=== PATIENT | female | born 1955 | race Caucasian/White ===

== ENCOUNTER 2016-07-08 14:03 | Emergency (ER) | payer SELFPAY ==
[2016-07-08] MEDS ORDERED: Nitroglycerin TAB 0.4 MG* 0.4 MG TAB SL ONE (14:59)
[2016-07-08] MEDS ORDERED: Aspirin Low Dose CHEW TAB* 81 MG PO ONE (14:59)
[2016-07-08 15:09] LABS: Hematocrit 40 % (35-47); Hemoglobin 12.6 g/dl (12.0-16.0); Mean Corpuscular HGB Conc 32 g/dl (31-36); Mean Corpuscular Hemoglobin 25 pg (27-31); Mean Corpuscular Volume 78 fL (80-97); Mean Platelet Volume 8 um3 (7.4-10.4); Red Blood Count 5.09 10^6/ul (4.0-5.4); Red Cell Distribution Width 15 % (10.5-15); White Blood Count 6.8 10^3/ul (3.5-10.8)
--- NOTE | 2016-07-08 15:17 | RAD ---
INDICATION: Chest pain. COMPARISON: Comparison is made with a prior study from September 23, 2014. TECHNIQUE: A portable view of the chest was obtained. FINDINGS: Cardiac and mediastinal contours appear to be within normal limits. The lungs are clear. No pleural effusion is seen. IMPRESSION: NO EVIDENCE FOR ACUTE DISEASE.
[2016-07-08 15:18] LABS: Albumin 4.4 g/dL (3.2-5.2); BUN/Creatinine Ratio 19.2 (8-20); Calcium 9.4 mg/dL (8.6-10.3); EGFR African American 103.6 (>60); EGFR Non-African American 80.5 (>60); Globulin 3.2 g/dL (2-4); Total Bilirubin 0.5 mg/dL (0.2-1.0); Total Protein 7.6 g/dL (6.4-8.9)
[2016-07-08 15:46] LABS: Potassium 3.9 mmol/L (3.5-5.0)
[2016-07-08 15:52] VITALS: BP 99/67
--- NOTE | 2016-07-08 22:42 | ED ---
Zoey Brito Michael, scribed for Otf Lakhani MD on 07/08/16 at 1428 . HPI Chest Pain - HPI Summary HPI Summary: 61 y/o female comes to the ED presenting with acute onset chest pain that started at 1400. The pt reports that chest pain is located mid sternal, and it is described as heaviness. The chest pain is reproduced upon palpation. Nothing aggravates or alleviates the chest pain per patient. She also c/o diaphoresis before the onset of chest pain, denies nausea, and denies SOB. The PMHx is significant for fibromyalgia. - History of Current Complaint Chief Complaint: EDChestPainROMI Time Seen by Provider: 07/08/16 14:23 Hx Obtained From: Patient, Medical Records Onset/Duration: Started Minutes Ago, Still Present Timing: Constant Initial Severity: Moderate Current Severity: Moderate Pain Intensity: 5 Pain Scale Used: 0-10 Numeric Chest Pain Location: Mid Sternal Chest Pain Radiates: No Character: Heaviness Aggravating Factor(s): Other: - palpation Alleviating Factor(s): Nothing Associated Signs and Symptoms: Positive: Chest Pain, Diaphoresis. Negative: Shortness of Breath, Nausea - Additional Pertinent History Primary Care Physician: [id number] - Allergy/Home Medications Allergies/Adverse Reactions: Allergies Allergy/AdvReac Type Severity Reaction Status Date / Time No Known Allergies Allergy Verified 09/30/14 08:27 PMH/Surg Hx/FS Hx/Imm Hx Endocrine/Hematology History: Denies: Hx Diabetes, Other Endocrine/Hematological Disorders Cardiovascular History: Reports: Other Cardiovascular Problems/Disorders - palpitations Denies: Hx Hypertension, Hx Pacemaker/ICD Respiratory History: Denies: Other Respiratory Problems/Disorders GI History: Denies: Other GI Disorders History: Denies: Other Problems/Disorders Musculoskeletal History: Reports: Hx Osteoporosis Denies: Other Musculoskeletal History Sensory History: Reports: Hx Contacts or Glasses - GLASSES, Hx Vision Problem Denies: Hx Hearing Aid, Other Sensory Impairments Opthamlomology History: Reports: Hx Contacts or Glasses - GLASSES, Hx Vision Problem Denies: Other Sensory Impairments Neurological History: Reports: Hx Headaches, Hx Migraine Denies: Other Neuro Impairments/Disorders Psychiatric History: Reports: Hx Depression Denies: Hx Panic Disorder, Other Psychiatric Issues/Disorders - Surgical History Surgery Procedure, Year, and Place: Bilat eye surg muscle correction ,total abdominal hysterectomy Hx Anesthesia Reactions: Yes - SEVERE NAUSEA; LOW BP AFTER HYSTERECTOMY Infectious Disease History: No Infectious Disease History: Denies: Traveled Outside the [place] in Last 30 Days - Family History Known Family History: Positive: None Family History: negative anesthesia reaction - Social History Occupation: Employed Full-time Lives: With Family Alcohol Use: None Substance Use Type: Reports: None Smoking Status (MU): Never Smoked Tobacco Review of Systems Positive: Skin Diaphoresis Positive: Chest Pain Negative: Shortness Of Breath Negative: Nausea All Other Systems Reviewed And Are Negative: Yes Physical Exam Triage Information Reviewed: Yes Vital Signs On Initial Exam: Initial Vitals Temp Pulse Resp BP Pulse Ox 99.2 F 95 15 132/75 100 07/08/16 14:05 07/08/16 14:05 07/08/16 14:05 07/08/16 14:05 07/08/16 14:05 Vital Signs Reviewed: Yes Appearance: Positive: Well-Appearing, No Pain Distress Skin: Positive: Warm, Skin Color Reflects Adequate Perfusion, Dry Head/Face: Positive: Normal Head/Face Inspection Eyes: Positive: Normal ENT: Positive: Normal ENT inspection Neck: Positive: Supple, Nontender Respiratory/Lung Sounds: Positive: Clear to Auscultation, Breath Sounds Present Cardiovascular: Positive: RRR Abdomen Description: Positive: Nontender, Soft Bowel Sounds: Positive: Present Musculoskeletal: Positive: Normal Neurological: Positive: Normal Psychiatric: Positive: Normal Diagnostics - Vital Signs Vital Signs Temp Pulse Resp BP Pulse Ox 07/08/16 14:05 99.2 F 95 16 132/75 100 - Laboratory Lab Results: Lab Results 07/08/16 07/08/16 07/08/16 Range/Units 14:32 14:32 14:32 WBC 6.8 (3.5-10.8) 10^3/ul RBC 5.09 (4.0-5.4) 10^6/ul Hgb 12.6 (12.0-16.0) g/dl Hct 40 (35-47) % MCV 78 L (80-97) fL MCH 25 L (27-31) pg MCHC 32 (31-36) g/dl RDW 15 (10.5-15) % Plt Count 298 (150-450) 10^3/ul MPV 8 (7.4-10.4) um3 Neut % (Auto) 47.2 (38-83) % Lymph % (Auto) 36.1 (25-47) % Whitman % (Auto) 10.9 H (1-9) % Eos % (Auto) 5.1 (0-6) % Baso % (Auto) 0.7 (0-2) % Absolute Neuts (auto) 3.2 (1.5-7.7) 10^3/ul Absolute Lymphs (auto) 2.5 (1.0-4.8) 10^3/ul Absolute Monos (auto) 0.7 (0-0.8) 10^3/ul Absolute Eos (auto) 0.3 (0-0.6) 10^3/ul Absolute Basos (auto) 0 (0-0.2) 10^3/ul Absolute Nucleated RBC 0.01 10^3/ul Nucleated RBC % 0.1 D-Dimer, Quantitative < 200 (Less Than 230) ng/mL Sodium 136 (133-145) mmol/L Potassium 3.9 (3.5-5.0) mmol/L Chloride 103 (101-111) mmol/L Carbon Dioxide 24 (22-32) mmol/L Anion Gap 9 (2-11) mmol/L BUN 14 (6-24) mg/dL Creatinine 0.73 (0.51-0.95) mg/dL Est GFR ( Amer) 103.6 (>60) Est GFR (Non-Af Amer) 80.5 (>60) BUN/Creatinine Ratio 19.2 (8-20) Glucose 121 H (70-100) mg/dL Lactic Acid (0.5-2.0) mmol/L Calcium 9.4 (8.6-10.3) mg/dL Total Bilirubin 0.50 (0.2-1.0) mg/dL AST 21 (13-39) U/L ALT 20 (7-52) U/L Alkaline Phosphatase 21 L (34-104) U/L Troponin I 0.00 (<0.04) ng/mL Total Protein 7.6 (6.4-8.9) g/dL Albumin 4.4 (3.2-5.2) g/dL Globulin 3.2 (2-4) g/dL Albumin/Globulin Ratio 1.4 (1-3) 05/14/17 05/14/17 Range/Units 14:32 17:55 WBC (3.5-10.8) 10^3/ul RBC (4.0-5.4) 10^6/ul Hgb (12.0-16.0) g/dl Hct (35-47) % MCV (80-97) fL MCH (27-31) pg MCHC (31-36) g/dl RDW (10.5-15) % Plt Count (150-450) 10^3/ul MPV (7.4-10.4) um3 Neut % (Auto) (38-83) % Lymph % (Auto) (25-47) % Whitman % (Auto) (1-9) % Eos % (Auto) (0-6) % Baso % (Auto) (0-2) % Absolute Neuts (auto) (1.5-7.7) 10^3/ul Absolute Lymphs (auto) (1.0-4.8) 10^3/ul Absolute Monos (auto) (0-0.8) 10^3/ul Absolute Eos (auto) (0-0.6) 10^3/ul Absolute Basos (auto) (0-0.2) 10^3/ul Absolute Nucleated RBC 10^3/ul Nucleated RBC % D-Dimer, Quantitative (Less Than 230) ng/mL Sodium (133-145) mmol/L Potassium (3.5-5.0) mmol/L Chloride (101-111) mmol/L Carbon Dioxide (22-32) mmol/L Anion Gap (2-11) mmol/L BUN (6-24) mg/dL Creatinine (0.51-0.95) mg/dL Est GFR ( Amer) (>60) Est GFR (Non-Af Amer) (>60) BUN/Creatinine Ratio (8-20) Glucose (70-100) mg/dL Lactic Acid 2.6 H* (0.5-2.0) mmol/L Calcium (8.6-10.3) mg/dL Total Bilirubin (0.2-1.0) mg/dL AST (13-39) U/L ALT (7-52) U/L Alkaline Phosphatase (34-104) U/L Troponin I 0.00 (<0.04) ng/mL Total Protein (6.4-8.9) g/dL Albumin (3.2-5.2) g/dL Globulin (2-4) g/dL Albumin/Globulin Ratio (1-3) Result Diagrams: 07/08/16 14:32 07/08/16 14:32 Lab Statement: Any lab studies that have been ordered have been reviewed, and results considered in the medical decision making process. - Radiology CXR Xray Interpretation: No Acute Changes Radiology Interpretation Completed By: Radiologist - EKG EK EKG Rhythm: Sinus Rhythm - 87 EKG Interpretation: non specific ST depression Chest Pain Course/Dx - Course Course Of Treatment: Her W/U here was negative including two troponins and she feels completley improved. She was given a NTG as well as ASA. Her pain gradually and slowly improved and there was seemingly no reaction to the NTG. I doubt that this is cardiac but I warned her that we can't be sure and she should F/U promptly. - Diagnoses Provider Diagnoses: Chest pain Discharge - Discharge Plan Condition: Stable Disposition: HOME Patient Education Materials: Chest Pain (ED) Referrals: Edie Combs MD [Primary Care Provider] - The documentation as recorded by the Zoey pat Michael accurately reflects the service I personally performed and the decisions made by me, Otf Lakhani MD.
== END 2016-07-08 18:53 | disposition home or self-care (01) ==
LOC: ED 14:03
DX: R07.9 Chest pain, unspecified (principal); R61 Generalized hyperhidrosis
CPT/HCPCS: 36415; 71010; 80053; 83605; 84484; 85025; 85379; 93005; 99284; A9270-GY

== ENCOUNTER 2018-09-06 08:29 | Emergency (ER) | payer MEDICARE ==
[2018-09-06] MEDS ORDERED: Morphine 4 MG/ML VIAL (1 ml) 4 MG/ML VIAL IV ONE (09:16)
[2018-09-06] MEDS ORDERED: NS 0.9% 1000 ML** 1,000 ML IV ONE (09:16)
[2018-09-06] MEDS ORDERED: Ondansetron INJ* 2 MG/ML VIAL IV ONE (09:17)
[2018-09-06 09:31] LABS: ABS Lymphocytes 0.6 10^3/ul (1.0-4.8); ABS Monocytes 1.2 10^3/ul (0-0.8); ABS Neutrophils 8.1 10^3/ul (1.5-7.7); Eosinophil % 0.3 %; Hematocrit 35 % (35-47); Hemoglobin 11.5 g/dL (12.0-16.0); Lymphocyte % 6.3 %; Mean Corpuscular HGB Conc 33 g/dL (31-36); Mean Corpuscular Hemoglobin 25 pg (27-31); Mean Corpuscular Volume 77 fL (80-97); Mean Platelet Volume 7.3 fL (7.4-10.4); Platelet Count 224 10^3/uL (150-450); Red Blood Count 4.57 10^6 /uL (3.70-4.87); Red Cell Distribution Width 14 % (10-15); White Blood Count 9.9 10^3/uL (3.5-10.8)
--- NOTE | 2018-09-06 10:02 | ED ---
Back Pain - HPI Summary HPI Summary: Pt. is a 63 y.o female who presents to the ER for right upper back pain x several days. Pt. notes she does a lot of heavy frequent lifting but does not recall any specific injuries or falls. Pt. states she has been taking motrin and tylenol without relief. Pt. states pain today radiates to the center of her chest and into her right shoulder. Pt. also notes an episode of palpitations and a headache. Pt. also notes ongoing productive cough. She denies SOB, fever, abd. pain, urinary sxs, V/D. Past hx of depression. Pain exacerbated by movement. Sxs are moderate in severity. - History of Current Complaint Chief Complaint: EDBackInjuryPain Stated Complaint: FLANK PAIN PER PATIENT Time Seen by Provider: 09/06/18 08:42 Hx Obtained From: Patient Pain Intensity: 10 - Allergies/Home Medications Allergies/Adverse Reactions: Allergies Allergy/AdvReac Type Severity Reaction Status Date / Time No Known Allergies Allergy Verified 09/06/18 08:35 PMH/Surg Hx/FS Hx/Imm Hx Previously Healthy: Yes Endocrine/Hematology History: Denies: Hx Diabetes, Other Endocrine/Hematological Disorders Cardiovascular History: Reports: Other Cardiovascular Problems/Disorders - palpitations Denies: Hx Hypertension, Hx Pacemaker/ICD Respiratory History: Denies: Other Respiratory Problems/Disorders GI History: Denies: Other GI Disorders History: Denies: Other Problems/Disorders Musculoskeletal History: Reports: Hx Osteoporosis Denies: Other Musculoskeletal History Sensory History: Reports: Hx Contacts or Glasses - GLASSES, Hx Vision Problem Denies: Hx Hearing Aid, Other Sensory Impairments Opthamlomology History: Reports: Hx Contacts or Glasses - GLASSES, Hx Vision Problem Denies: Other Sensory Impairments Neurological History: Reports: Hx Headaches, Hx Migraine Denies: Other Neuro Impairments/Disorders Psychiatric History: Reports: Hx Depression Denies: Hx Panic Disorder, Other Psychiatric Issues/Disorders - Cancer History Hx Chemotherapy: No Hx Radiation Therapy: No - Surgical History Surgery Procedure, Year, and Place: Bilat eye surg muscle correction ,total abdominal hysterectomy Hx Anesthesia Reactions: Yes - SEVERE NAUSEA; LOW BP AFTER HYSTERECTOMY Infectious Disease History: No Infectious Disease History: Denies: Traveled Outside the [place] in Last 30 Days - Family History Known Family History: Positive: None, Cardiac Disease, Hypertension Family History: negative anesthesia reaction - Social History Occupation: Employed Full-time Lives: With Family Alcohol Use: None Substance Use Type: Reports: None Smoking Status (MU): Never Smoked Tobacco Review of Systems Constitutional: Negative Negative: Fever, Chills Eyes: Negative ENT: Negative Positive: Palpitations, Chest Pain Positive: Cough Gastrointestinal: Negative Negative: Abdominal Pain, Vomiting, Diarrhea, Nausea Genitourinary: Negative Negative: burning, dysuria, flank pain Positive: Other - Right upper back pain Skin: Negative Negative: Rash Positive: Headache. Negative: Weakness, Paresthesia, Numbness, Syncope All Other Systems Reviewed And Are Negative: Yes Physical Exam Triage Information Reviewed: Yes Vital Signs On Initial Exam: Initial Vitals Temp Pulse Resp BP Pulse Ox 97.9 F 106 16 148/86 99 09/06/18 08:31 09/06/18 08:31 09/06/18 08:31 09/06/18 08:31 09/06/18 08:31 Vital Signs Reviewed: Yes Appearance: Positive: Well-Appearing - Pt. sitting in bed in NAD. Appears comfortable until attempts movement. Skin: Positive: Warm, Dry Head/Face: Positive: Normal Head/Face Inspection Eyes: Positive: Normal, EOMI Neck: Positive: Supple Respiratory/Lung Sounds: Positive: Clear to Auscultation, Breath Sounds Present Cardiovascular: Positive: Normal, RRR Abdomen Description: Positive: Nontender, Soft. Negative: CVA Tenderness (R), CVA Tenderness (L) Musculoskeletal: Positive: Normal, Strength/ROM Intact, Other - Reproducible pain just medially to right scapula. No midline tenderness. Neurological: Positive: Normal, CN Intact II-III Psychiatric: Positive: Affect/Mood Appropriate Diagnostics - Vital Signs Vital Signs Temp Pulse Resp BP Pulse Ox 09/06/18 09:30 19 09/06/18 09:24 101 95 09/06/18 09:12 139/71 09/06/18 08:42 101 141/79 99 09/06/18 08:31 97.9 F 106 16 148/86 99 - Laboratory Lab Results: Lab Results 09/06/18 Range/Units 09:21 WBC 9.9 (3.5-10.8) 10^3/uL RBC 4.57 (3.70-4.87) 10^6 /uL Hgb 11.5 L (12.0-16.0) g/dL Hct 35 (35-47) % MCV 77 L (80-97) fL MCH 25 L (27-31) pg MCHC 33 (31-36) g/dL RDW 14 (10-15) % Plt Count 224 (150-450) 10^3/uL MPV 7.3 L (7.4-10.4) fL Neut % (Auto) 81.1 % Lymph % (Auto) 6.3 % [place] % (Auto) 12.1 % Eos % (Auto) 0.3 % Baso % (Auto) 0.2 % Absolute Neuts (auto) 8.1 H (1.5-7.7) 10^3/ul Absolute Lymphs (auto) 0.6 L (1.0-4.8) 10^3/ul Absolute Monos (auto) 1.2 H (0-0.8) 10^3/ul Absolute Eos (auto) 0.0 (0-0.6) 10^3/ul Absolute Basos (auto) 0.0 (0-0.2) 10^3/ul Absolute Nucleated RBC 0.0 10^3/ul Nucleated RBC % 0.0 Result Diagrams: 09/06/18 09:21 09/06/18 09:21 Lab Statement: Any lab studies that have been ordered have been reviewed, and results considered in the medical decision making process. Back Pain Course/Dx - Course Course Of Treatment: Pt. presenting with worsening upper back pain. Pain notes pain radiates into the center of her chest. She is afebrile with stable VS. ECG done at 0916 shows a sinus rhythm of 91bpm, normal axis, no ST elevation or depression. Case discussed with Dr. Lakhani and will obtain CTA to r/o dissection as well as PE. Blood work up remarkable. UA shows RBCs without signs of infection. PT. without flank or abd. pain to suggest kidney Labs unremarkable other than mild anemia. CTA shows mild cardiomegaly and atelectasis and negative for pe or dissection, per radiology. On re-exam pt. feeling moderately better after toradol and morphine. WIll treat for muscular pain. Small rx for flexeril and lortab given. [employer] reviewed. Advised warm compresses and massage. TO f.u with PCP in 2-3 days and return to ER if sxs change or worsen. - Diagnoses Differential Diagnosis/HQI/PQRI: Positive: Fracture, Herniated Disc, Strain, Sprain, Other - PE, dissection, pneumonia Provider Diagnoses: Thoracic back pain, Muscle spasm Discharge - Sign-Out/Discharge Documenting (check all that apply): Patient Departure Patient Received Moderate/Deep Sedation with Procedure: No - Discharge Plan Condition: Improved Disposition: HOME Prescriptions: Cyclobenzaprine TAB* [Flexeril 10 MG TAB*] 10 mg PO TID PRN #9 tab PRN Reason: Pain HYDROcodone/ACETAMIN 5-325 MG* [[place] 5-325 TAB*] 1 tab PO Q6H PRN #12 tab MDD 4 PRN Reason: Pain Patient Education Materials: Thoracic Pain (ED), Muscle Spasm (ED) Referrals: Issa Sahu MD [Primary Care Provider] - Additional Instructions: Follow up with PCP in 2-3 days Medication as directed Apply warm compresses Gentle massage and stretching Avoid heavy lifting Return to ER if symptoms change or worsen - Billing Disposition and Condition Condition: IMPROVED Disposition: Home
[2018-09-06 10:03] LABS: ALT 13 U/L (7-52); AST 17 U/L (13-39); Albumin 3.8 g/dL (3.2-5.2); Albumin/Globulin Ratio 1.1 (1-3); Alkaline Phosphatase 28 U/L (34-104); Anion Gap 8 mmol/L (2-11); BUN/Creatinine Ratio 14.7 (8-20); Blood Urea Nitrogen 10 mg/dL (6-24); CO2 Carbon Dioxide 25 mmol/L (22-32); Chloride 102 mmol/L (101-111); EGFR African American 105.1 (>60); EGFR Non-African American 86.8 (>60); Globulin 3.6 g/dL (2-4); Glucose 122 mg/dL (70-100); Potassium 3.7 mmol/L (3.5-5.0); Sodium 135 mmol/L (135-145); Total Protein 7.4 g/dL (6.4-8.9)
[2018-09-06] MEDS ORDERED: Iohexol 350* (CONTRAST) 500 ML MDV IV ONE (10:45)
[2018-09-06] MEDS ORDERED: Ketorolac INJ* 30 MG/ML 1 ML VIAL IM ONE (11:47)
[2018-09-06 11:51] LABS: Urine Appearance Clear; Urine Bacteria Absent (Absent); Urine Bilirubin Negative (Negative); Urine Blood 3+ (Negative); Urine Color Straw; Urine Glucose Negative (Negative); Urine Ketones 1+ (Negative); Urine Nitrite Negative (Negative); Urine Protein Negative (Negative); Urine Red Blood Cell 3+(>10/hpf) (Absent); Urine Specific Gravity 1.034 (1.010-1.030); Urine Squamous Epithelial Cell Present (Absent); Urine Urobilinogen Negative (Negative); Urine White Blood Cell Trace(0-5/hpf) (Absent)
[2018-09-06] MEDS ORDERED: Ketorolac INJ* 30 MG/ML 1 ML VIAL IV ONE (11:54)
[2018-09-06 12:14] VITALS: BP 121/68
== END 2018-09-06 12:29 | disposition home or self-care (01) ==
LOC: ED 08:29
DX: M54.6 Pain in thoracic spine (principal); M62.838 Other muscle spasm; J98.11 Atelectasis; I51.7 Cardiomegaly
CPT/HCPCS: 36415; 71275; 80053; 81003; 81015; 83690; 84484; 85025; 87086; 93005; 96361; 96372; 96374; 96375; 99283; J1885; J2270; J2405; Q9967

== ENCOUNTER 2018-09-10 07:07 | Inpatient (IN) | payer MEDICARE ==
[2018-09-10] MEDS ORDERED: NS 0.9% 1000 ML** 1,000 ML IV.FLUID IV ONE (08:12)
--- NOTE | 2018-09-10 08:29 | ED ---
Back Pain - HPI Summary HPI Summary: This patient is a 63 year old F presenting to [facility] accompanied by ex- with a chief complaint of diffuse back pain since aprrox. 09/03/18, due to trimming the hedges using a broken trimmer sawyer. Pt came to ED on 09/06/18, however she returned her pain has not subsided and she has new symptoms. Per, triage the patient rates the pain 10/10 in severity. Pt reports GERD, chest pain , unsteady gait, feel faint when standing up, loss of appetite, abdominal pain, RESENDEZ. Today morning, pt had auditory hallucinations where she heard sheep. Patient denies fever, vomiting, diarrhea. Pt hit head 5 year ago, had to have surgery. Pt has had a hysterectomy. Pt takes Estradiol .25mg, daily. - History of Current Complaint Chief Complaint: EDGeneral Stated Complaint: PAIN EVERYWHERE PER PT Time Seen by Provider: 09/10/18 08:12 Hx Obtained From: Patient Onset/Duration: Lasting Days, Still Present Onset/Duration: Started Days Ago, Still Present Timing: Constant Back Pain Location: Is Diffuse Severity Initially: Severe Severity Currently: Severe Pain Intensity: 10 Pain Scale Used: 0-10 Numeric Associated Signs And Symptoms: Positive: Negative - fever, vomiting, diarrhea;, Abdominal Pain, Other - GERD, chest pain, unsteady gait, feel faint when standing up, loss of appetite, RESENDEZ, auditory hallucinations - Allergies/Home Medications Allergies/Adverse Reactions: Allergies Allergy/AdvReac Type Severity Reaction Status Date / Time No Known Allergies Allergy Verified 09/10/18 07:13 Home Medications: Home Medications DULoxetine DR ROBERTSON* [Cymbalta CAP*] 60 mg PO DAILY 09/10/18 [History Confirmed ] PMH/Surg Hx/FS Hx/Imm Hx Endocrine/Hematology History: Denies: Hx Diabetes, Other Endocrine/Hematological Disorders Cardiovascular History: Reports: Other Cardiovascular Problems/Disorders - palpitations Denies: Hx Hypertension, Hx Pacemaker/ICD Respiratory History: Denies: Other Respiratory Problems/Disorders GI History: Denies: Other GI Disorders History: Denies: Other Problems/Disorders Musculoskeletal History: Reports: Hx Osteoporosis Denies: Other Musculoskeletal History Sensory History: Reports: Hx Contacts or Glasses - GLASSES, Hx Vision Problem Denies: Hx Hearing Aid, Other Sensory Impairments Opthamlomology History: Reports: Hx Contacts or Glasses - GLASSES, Hx Vision Problem Denies: Other Sensory Impairments Neurological History: Reports: Hx Headaches, Hx Migraine Denies: Other Neuro Impairments/Disorders Psychiatric History: Reports: Hx Depression Denies: Hx Panic Disorder, Other Psychiatric Issues/Disorders - Cancer History Hx Chemotherapy: No Hx Radiation Therapy: No - Surgical History Surgery Procedure, Year, and Place: Bilat eye surg muscle correction ,total abdominal hysterectomy Hx Anesthesia Reactions: Yes - SEVERE NAUSEA; LOW BP AFTER HYSTERECTOMY Infectious Disease History: No Infectious Disease History: Denies: Traveled Outside the [place] in Last 30 Days - Family History Known Family History: Positive: Cardiac Disease, Hypertension Family History: negative anesthesia reaction - Social History Alcohol Use: None Hx Substance Use: No Substance Use Type: Reports: None Hx Tobacco Use: No Smoking Status (MU): Never Smoked Tobacco Review of Systems Positive: Other - loss of appetite. Negative: Fever Positive: Chest Pain Positive: Abdominal Pain, Other - GERD. Negative: Diarrhea, Nausea Positive: Other - back pain Neurological: Other - pos - Unsteady gait, auditory hallucinations Positive: Headache All Other Systems Reviewed And Are Negative: Yes Physical Exam - Summary Physical Exam Summary: Appearance: Well-appearing, Well-nourished, lying in bed comfortably Skin: Warm, dry, no obvious rash Eyes: sclera anicteric, no conjunctival pallor ENT: mucous membranes moist, pharynx appears normal Neck: Supple, nontender Respiratory: Clear to auscultation, no signs of respiratory distress Cardiovascular: Normal S1, S2. No murmurs. Normal distal pulses in tibial and radial bilaterally. Abdomen: Soft, nontender, normal active bowel sounds present Musculoskeletal: Normal, Strength/ROM Intact, Motor function in all 4 extremities is normal and symmetric. There is no rigidity or tremor noted. Neurological: A&Ox3, awake and alert, mentation is normal, speech is fluent and appropriate, Level of consciousness nml. The patient is alert and oriented. Cranial nerves are grossly intact. Gaze is conjugate and without nystagmus. Peripheral vision is intact to confrontation. There are no gross sensory abnormalities to light touch. There is no fine motor ataxia. Gait ataxia. Borderline positive Romberg. Psychiatric: affect is normal, does not appear anxious or depressed Triage Information Reviewed: Yes Vital Signs On Initial Exam: Initial Vitals Temp Pulse Resp BP Pulse Ox 99.8 F 114 16 154/76 96 09/10/18 07:09 09/10/18 07:09 09/10/18 07:09 09/10/18 07:09 09/10/18 07:09 Vital Signs Reviewed: Yes - [place] Coma Scale Best Eye Response: 4 - Spontaneous Best Motor Response: 6 - Obeys Commands Best Verbal Response: 5 - Oriented Coma Scale Total: 15 Procedures - Lumbar Puncture Midline Position: Sitting Aseptic Technique: Local Anesthesia Anesthesia Used: 2.0% Lido Spinal Needle Used: 22 Gauge Lumbar Puncture Note: Approximately 5 mL's of slightly cloudy CSF was obtained using the normal anatomic landmarks. Diagnostics - Vital Signs Vital Signs Temp Pulse Resp BP Pulse Ox 09/10/18 07:09 99.8 F 114 16 154/76 96 - Laboratory Result Diagrams: 09/12/18 18:01 09/12/18 18:01 Lab Statement: Any lab studies that have been ordered have been reviewed, and results considered in the medical decision making process. - CT Brain CT CT Interpretation Completed By: Radiologist Summary of CT Findings: Brain CT reveals, per radiologist, IMPRESSION: NO EVIDENCE FOR ACUTE INTRACRANIAL ABNORMALITY. ED physician has reviewed this radiology report. Re-Evaluation - Re-Evaluation First Eval Re-Evaluation Time: 09:55 Comment: Discussed results with pt. Second Eval Re-Evaluation Time: 10:10 Third Eval Re-Evaluation Time: 11:07 Comment: Spoke possible need for spinal tap. Fourth Eval Re-Evaluation Time: 11:14 Comment: obtained consent for spinal tap. Back Pain Course/Dx - Course Course Of Treatment: This patient is a 63 year old F presenting to [facility] accompanied by ex- with a chief complaint of diffuse back pain since aprrox. 09/03/18, due to trimming the hedges using a broken trimmer sawyer. Pt came to ED on 09/06/18, however she returned her pain has not subsided and she has new symptoms. Per, triage the patient rates the pain 10/10 in severity. Pt reports GERD, chest pain, unsteady gait, feel faint when standing up, loss of appetite, abdominal pain, RESENDEZ. Today morning, pt had auditory hallucinations where she heard sheep. Patient denies fever, vomiting, diarrhea. Pt hit head 5 year ago, had to have surgery. Pt has had a hysterectomy. Pt takes Estradiol .25mg, daily. Blood work obtained. Hgb is 10.7, Hct is 32, MCV is 75, MCH is 26 , ESR is 97, Sodium is 132, Potassium is 3.1, Chloride is 97, Anion Gap is 12, Glucose is 139, AST is 89, ALT is 113, C-Reactive Protein is 238.50, Albumin/ Globulin Ratio is 0.9. CSF Glucose is 24. CSF Total Protein is 623. CSF WBC is 616. Brain CT reveals, per radiologist, IMPRESSION: NO EVIDENCE FOR ACUTE INTRACRANIAL ABNORMALITY. We discussed patient care with Dr. Grace and he recommended lumbar puncture and admission. Dr. Contreras accepts pt for admission. Patient will be admitted. The patient is agreeable with this plan. - Diagnoses Provider Diagnoses: Meningitis - Provider Notifications Discussed Care Of Patient With: Javier Grace Time Discussed With Above Provider: 10:37 Instructed by Provider To: Other - Discussed pt case with Dr. Grace who will see pt in the ED; 12:42 - discussed CSF result with Dr. Grace, who suggest lumbar puncture. 13:07 - discussed results with Dr. Contreras, who accepts pt for admission, and recommend vancomycin and ampicillin. - Critical Care Time Critical Care Time: 30-74 min Discharge - Sign-Out/Discharge Documenting (check all that apply): Patient Departure - Admit All imaging exams completed and their final reports reviewed: Yes Patient Received Moderate/Deep Sedation with Procedure: No - Discharge Plan Condition: Guarded Disposition: ADMITTED TO [facility] - Billing Disposition and Condition Condition: GUARDED Disposition: Admitted to [facility] - Attestation Statements Document Initiated by Carolyne: Yes Documenting Scribe: Tana Hernandez Provider For Whom Carolyne is Documenting (Include Credential): Dr. Otf Lee Scribe Attestation: ITana, scribed for Dr. Otf Lee on 09/18/18 at 1015. Scribe Documentation Reviewed: Yes Provider Attestation: The documentation as recorded by the Tana pat accurately reflects the service I personally performed and the decisions made by me, Dr. Otf Lee Status of Scribe Document: Viewed
[2018-09-10 08:54] LABS: Hematocrit 32 % (35-47); Hemoglobin 10.7 g/dL (12.0-16.0); Mean Corpuscular HGB Conc 34 g/dL (31-36); Mean Corpuscular Hemoglobin 26 pg (27-31); Mean Corpuscular Volume 75 fL (80-97); Mean Platelet Volume 7.7 fL (7.4-10.4); Platelet Count 235 10^3/uL (150-450); Red Blood Count 4.22 10^6 /uL (3.70-4.87); Red Cell Distribution Width 15 % (10-15); White Blood Count 8.7 10^3/uL (3.5-10.8)
[2018-09-10 09:02] LABS: INR 1.32 (0.82-1.09)
[2018-09-10 09:11] LABS: Albumin 3.3 g/dL (3.2-5.2); Albumin/Globulin Ratio 0.9 (1-3); C Reactive Protein 238.5 mg/L (<8.01); EGFR African American 103.3 (>60); EGFR Non-African American 85.4 (>60); Globulin 3.8 g/dL (2-4); Potassium 3.1 mmol/L (3.5-5.0); Total Bilirubin 0.5 mg/dL (0.2-1.0); Total Protein 7.1 g/dL (6.4-8.9); Troponin I 0.01 ng/mL (<0.04)
[2018-09-10 09:22] LABS: ABS Lymphocytes 0.8 10^3/ul (1.0-4.8); ABS Monocytes 1.5 10^3/ul (0-0.8); ABS Neutrophils 6.4 10^3/ul (1.5-7.7); Eosinophil % 0.3 %; Lymphocyte % 9.1 %; Nucleated Red Blood Cells % 0.2
[2018-09-10 10:29] LABS: Erythrocyte Sed Rate 97 mm/Hr (0-29)
[2018-09-10] MEDS ORDERED: Lidocaine 2% MPF* 2 ML VIAL INJ ONE (11:00)
[2018-09-10] MEDS ORDERED: Acetaminophen TAB* 325 MG PO ONE (11:08)
[2018-09-10] MEDS ORDERED: Lidocaine 2% 10 ML* VIAL INJ ONE (11:09)
[2018-09-10] MEDS ORDERED: Lidocaine 2% MPF* 2 ML VIAL ONE (11:18)
[2018-09-10 11:29] LABS: Urine Appearance Clear; Urine Bacteria Absent (Absent); Urine Bilirubin Negative (Negative); Urine Blood 3+ (Negative); Urine Color Yellow; Urine Glucose Negative (Negative); Urine Ketones Negative (Negative); Urine Nitrite Negative (Negative); Urine Protein Negative (Negative); Urine Red Blood Cell 3+(>10/hpf) (Absent); Urine Specific Gravity 1.006 (1.010-1.030); Urine Squamous Epithelial Cell Present (Absent); Urine Urobilinogen Negative (Negative); Urine White Blood Cell Trace(0-5/hpf) (Absent)
[2018-09-10] MEDS ORDERED: cefTRIAXone(*) 2 GM in NS 0.9% 50 ML* 50 ML IVPB ONE (11:30)
[2018-09-10 11:51] LABS: Body Fluid Source Cerebral Spinal
[2018-09-10 12:05] LABS: CSF Glucose 24 mg/dL (40-70)
[2018-09-10] MEDS ORDERED: Vancomycin(*) 1,500 MG in NS 0.9% 250 ML* 250 ML IVPB ONE (13:08)
[2018-09-10] MEDS ORDERED: Ampicillin ADVAN(*) 2 GM in NS 0.9% 100 ML* 100 ML IVPB ONE (13:09)
[2018-09-10 13:28] LABS: Body Fluid Mono 16 %
[2018-09-10] MEDS ORDERED: Acyclovir IV(*) 750 MG in NS 0.9% 250 ML* 250 ML IVPB SCH (14:00)
[2018-09-10 14:13] LABS: HIV 4th Generation Negative (Negative)
[2018-09-10] MEDS ORDERED: Potassium Chlor TAB* 20 MEQ TAB.ER PO ONE (14:38)
[2018-09-10] MEDS ORDERED: Vancomycin(*) 0 MG in NS 0.9% 250 ML* 250 ML IVPB SCH (15:00)
[2018-09-10] MEDS ORDERED: Acyclovir IV(*) 750 MG in NS 0.9% 250 ML* 250 ML IVPB ONE (15:00)
[2018-09-10] MEDS ORDERED: Vancomycin per Pharmacy* NOTE FOLLOW UP PRN (15:06)
[2018-09-10 15:07] LABS: TSH (Thyroid Stimulating Horm) 1.69 mcIU/mL (0.34-5.60)
[2018-09-10] MEDS ORDERED: Vancomycin 1500 MG IV - x ONCE IVPB STA ×2 (15:08)
[2018-09-10 15:10] LABS: Free T4 0.98 ng/dL (0.61-1.12)
[2018-09-10] MEDS: HYDROcodone/ACETAMIN 5-325 MG* 1 TAB PO PRN (15:40)
--- NOTE | 2018-09-10 16:30 | HP ---
HISTORY AND PHYSICAL: DATE OF ADMISSION: 09/10/18 PRIMARY CARE PROVIDER: The patient does not know her primary's name. CHIEF COMPLAINT: Diffuse body aches and headache. HISTORY OF PRESENT ILLNESS: Ms. Mcbride is a 63-year-old female who has a history of depression, fibromyalgia, and insomnia who states that her more subacute issues began 3 days ago. When I initially asked the patient to tell me when everything started becoming an issue, she states it started 4 years ago when she developed insomnia. She then had a difficult time telling me the story leading up to today. She then is able to be redirected when I tell her I understand she had been in the emergency room recently. She states that more acutely her symptoms have been diffuse body aches. She states that she presented to the emergency room on 09/06/18 due to chest pain. When I asked her to describe the chest pain, she states that it actually is in the back. She points to the right flank area. She states it radiates around. She has been unsteady on her feet over the last 3 days. She has had difficulty focusing. She has had decreased appetite, though she then tells me her appetite has been decreased for a prolonged period of time. She has had shortness of breath over the last 2 days as well as cough. She is not bringing up any sputum. She tells me that on 09/06/18, she had some sort of imaging study (I am guessing the CT angiogram because she said she was given contrast) and following that, she developed severe headache. The headache has persisted. She has been having increased sweating throughout the day and drenching night sweats. She has been having cold chills. Her ex-, who is present during my evaluation, states that she has had word-finding difficulties. She has not been acting herself. She reportedly at approximately 3 a.m. on Saturday morning drove over to her ex-'s house, seeming confused, and passed out in her granddaughter's room. He asked her if she wanted to go to the hospital and she said no. Due to the symptoms persisting, she was brought back to the emergency room for evaluation. She has also had some nausea, but no vomiting. She states that she did have perhaps some auditory hallucinations today. There has been no weight loss. She has had increased thirst. PAST MEDICAL HISTORY: 1. Depression. 2. Fibromyalgia. 3. Insomnia. PAST SURGICAL HISTORY: 1. Hysterectomy. 2. C5-6 diskectomy. 3. Five eye surgeries for strabismus. MEDICATIONS: 1. Estradiol 0.25 mg p.o. at bedtime. 2. Cymbalta 60 mg p.o. daily. 3. Nortriptyline 50 mg p.o. at bedtime. 4. [place] 5/325 one tab p.o. q.6 hours p.r.n. for pain. 5. Flexeril 10 mg p.o. t.i.d. p.r.n. for pain. ALLERGIES: No known drug allergies. FAMILY HISTORY: Mom has history of congenital heart disease. Dad of COPD and alcoholism at 66. SOCIAL HISTORY: The patient does not smoke. She does not drink alcohol. 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 She is , though her ex- is here with her. She has one daughter. She indicates that her daughter, Sylvie, would be her healthcare proxy. REVIEW OF SYSTEMS: A complete 11-system review of systems is obtained. Pertinent positives and negatives are as per HPI and in addition, the patient also states that she has had small, almost scab-like lesions that will pop up all over her body from time to time. She states it feels as if there is a shard of glass in her skin. She will then scratch it to remove the scab or whatever is in the lesion, which is then leading to ulcerations. She becomes very defensive when I ask her about this picking behavior. The rest of the review of systems is negative. PHYSICAL EXAMINATION GENERAL: The patient is a well-developed middle-aged female, seen sitting up in bed, almost manic in nature, but in no acute distress. VITAL SIGNS: Blood pressure 151/78, pulse 84, respirations 16, temp 99.8, O2 sat 93% on room air. HEENT: Pupils are equal and round. Extraocular muscles are intact. There is no nystagmus. Oropharynx is clear. Oral mucosa is slightly dry. There is a thick white film on the patient's tongue. There is no submandibular, cervical or supraclavicular adenopathy. Thyroid is not enlarged. No thyroid nodules are noted. PULMONARY: Lungs are clear to auscultation bilaterally. CARDIAC: Normal S1, S2. Regular rate and rhythm. I do not appreciate any murmurs. ABDOMEN: Bowel sounds present. Abdomen is soft, nontender, nondistended. MUSCULOSKELETAL: The patient moves all 4 extremities symmetrically. There is no cyanosis or clubbing of the digits. NEUROLOGIC: Cranial nerves II through XII are grossly intact. Sensation is intact to light touch throughout. Strength is 5/5 and symmetric to both upper and lower extremities bilaterally. The patient does at times have mild word- finding difficulties. PSYCH: The patient again is appearing almost manic. She has very fast, loud and copious speech. SKIN: Warm and dry. There are no rashes. There are numerous scars and open sores from the patient picking noted on her arms, her legs, and her upper back. DIAGNOSTIC STUDIES/LAB DATA: Labs: WBC 8.7, hemoglobin 10.7, hematocrit 32, platelets 235, absolute monocytes 1.5, ESR 97. INR 1.32. Sodium 132, potassium 3.1, chloride 97, CO2 of 23, BUN 9, creatinine 0.69, glucose 139, lactic acid 1.4, calcium 9. Bilirubin 0.5, AST 89, ALT 113, alk phos 59. Troponin 0.01, CRP 238.5. Albumin 3.3. TSH and free T4 pending. Urinalysis reveals clear urine with specific gravity of 1.006, 3+ blood, 3+ rbc's, positive for squamous epithelial cells. HIV I and II antibody negative. CSF reveals cloudy fluid. CSF WBC 6016, CSF RBC 55, neutrophils 84, monocytes 16, CSF glucose 24, CSF total protein 623. CT brain, no evidence for acute intracranial abnormality. ASSESSMENT AND PLAN: Ms. Mcbride is a 63-year-old female with history of depression, fibromyalgia, and insomnia who presents to the emergency room for the second time in 1 week with complaints of diffuse body aches now with associated headache, diaphoresis, night sweats, and shortness of breath who is going to be admitted for a presumed meningoencephalitis given her CSF abnormalities. 1. Meningoencephalitis. The differential on this is quite broad and this includes both infectious and noninfectious causes. Neurology consultation has been requested. Dr. Grace has seen the patient and has recommended an AMANDA, rheumatid factor, RPR, lyme and cryptococcal antigen as well as MRI with and without contrast and EEG. ID consultation has also been requested. I did speak with Dr. Cason, who recommended sending CSF for HSV PCR, the [place] viral encephalitis panel, serum paraneoplastic panel, anti-NMDA receptor antibodies. Additional cytology will be sent on the CSF. The patient will be treated with antibiotics for possible bacterial meningitis, though I suspect this is not the case as the patient's symptoms have been ongoing for several days and despite this, she does not look critically ill. We will treat with vancomycin and ceftriaxone and acyclovir. Further investigations for noninfectious causes may be warranted depending on the results of the initial workup. The patient's mental status will need to be monitored very closely. 2. Depression. At this point, I am holding all of the patient's home medications including her duloxetine and nortriptyline as I do not want to cloud her mental status picture with these medications. 3. Right flank pain. Given the right flank pain and blood in her urine, I will obtain CT abdomen and pelvis without for stone protocol. 4. DVT prophylaxis. According to the Adult Thrombosis Prophylaxis Risk Factor Assessment Guide, the patient has a total risk factor score of 3, making her high risk. Lovenox 40 mg subcutaneous daily will be initiated tomorrow as DVT prophylaxis. 5. Code status is full. TIME SPENT: Eighty minutes were spent admitting this patient. [id number]/[facility] #: [id number] MTDNed
--- NOTE | 2018-09-10 17:21 | CONS ---
CONSULTATION REPORT: DATE OF CONSULT: 09/10/18 PATIENT OF: Dr. Contreras HISTORY OF PRESENT ILLNESS: This is a 63-year-old woman, who presented to the ED with an acute encephalopathy and Dr. Lee discussed with me earlier today, was having elevated sed rate as well as the encephalopathy, and I recommended spinal tap, which she has had, and now is coming in for admission. She noticed that for the past probably 5 days' time she has been confused and more forgetful , a little bit agitated and repeats herself and repeats questions. She has some unsteadiness in her gait and has developed some auditory hallucinations wherein she has heard speech. She has had no staring spells or seizures. She has only had a minor headache. She has had some low-back pain and has been to the emergency room recently for her confusion and back pain, she notes. She is status post hysterectomy and takes estradiol. Otherwise she is in good general health. 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 She has had bilateral surgery on her eye muscles and a total hysterectomy. She has had no recent travel. FAMILY HISTORY: Significant for cardiac disease and hypertension. SOCIAL HISTORY: She has no substance abuse and does not smoke or drink. REVIEW OF SYSTEMS: Negative other than the HPI and GERD, and has some loss of appetite. PHYSICAL EXAM: Temperature 99.3, pulse 89, blood pressure 156/76, respirations 20. She was alert and oriented x3, but tended to repeat herself and she asked the same questions, although she could give detailed answers to some questions. She had no word finding difficulty for me. Cranial nerve exam II through XII are intact. There is no facial asymmetry. Discs were sharp. Motor exam revealed normal tone and strength. No pronator drift. Sensation intact to light touch. Reflexes 2. Chest: Clear. Cardiovascular: Regular rate and rhythm. Abdomen is soft. DIAGNOSTIC STUDIES/LAB DATA: Her CT was reviewed and was normal. Labs include her CSF, which showed 616 white cells, 55 red cells, neutrophils 84 , monocyte 16, glucose 24, total protein 623. White count 8.7, hematocrit 32, platelets 235. Sed rate 97. Normal PTT, INR of 1.32. Normal CMP other than a sodium of 132, potassium of 3.1, glucose 139. AST 89, ALT 113. C-reactive protein 238. UA has 3+ blood. 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 I have discussed with Dr. Lee and Dr. Contreras and recommended ID consult, but being treated for bacterial meningitis, which is possible, as well as herpes with acyclovir. I recommended cryptococcal antigen be included in addition to the workup that Dr. Cason had recommended over the phone, as well as Lyme titer and RPR. Cytology should also be considered. Her sed rate is extremely high for a viral encephalitis. She needs an EEG to screen for the possibility of seizures. It is possible that the hallucinations could be seizures, but that is not the most likely possibility, it is most likely just associated with meningoencephalitis. I am also recommending an MRI scan with and without contrast to see the pattern of enhancement on MRI scan. I am also recommending testing for TB given her exposure to many sick people at her work as a social services director. I am also recommending an AMANDA and rheumatoid factor since she has encephalitis that could be conceivably autoimmune. Of interest is that her liver function tests are a little bit elevated and this could possibly tie in with whatever the inflammatory process is. It may be that we need to get a paraneoplastic workup on her, depending on how this case evolves. Thank you for sharing her case. [id number]/[facility] #: [id number] SAURABH
[2018-09-10] MEDS: NS 0.9% 1000 ML** 1,000 ML IV SCH (18:02)
[2018-09-10] MEDS: Morphine INJ* 2 MG/ML 1 ML SYRINGE (TWO MG - NEW SYRINGE VERSION) IV PRN ×2 (18:02→22:48)
[2018-09-10] MEDS: Acyclovir IV(*) 700 MG in NS 0.9% 250 ML* 250 ML IVPB SCH (22:49)
[2018-09-11] MEDS: HYDROcodone/ACETAMIN 5-325 MG* 1 TAB PO PRN ×3 (00:25→18:53)
[2018-09-11] MEDS: Vancomycin(*) 1,000 MG in NS 0.9% 250 ML* 250 ML IVPB SCH ×2 (01:45→10:39)
[2018-09-11] MEDS: Morphine INJ* 2 MG/ML 1 ML SYRINGE (TWO MG - NEW SYRINGE VERSION) IV PRN ×3 (04:55→12:51)
[2018-09-11] MEDS: Acyclovir IV(*) 700 MG in NS 0.9% 250 ML* 250 ML IVPB SCH (04:55)
[2018-09-11] MEDS: Enoxaparin(*) 40 MG/0.4 ML SYR SUBCUT SCH (04:55)
[2018-09-11 07:55] LABS: Hematocrit 33 % (35-47); Hemoglobin 11.1 g/dL (12.0-16.0); Mean Corpuscular HGB Conc 34 g/dL (31-36); Mean Corpuscular Hemoglobin 25 pg (27-31); Mean Corpuscular Volume 75 fL (80-97); Mean Platelet Volume 7.7 fL (7.4-10.4); Platelet Count 287 10^3/uL (150-450); Red Blood Count 4.44 10^6 /uL (3.70-4.87); Red Cell Distribution Width 15 % (10-15); White Blood Count 15.3 10^3/uL (3.5-10.8)
[2018-09-11 08:30] LABS: BUN/Creatinine Ratio 9.7 (8-20); Calcium 8.7 mg/dL (8.6-10.3); EGFR African American 116.9 (>60); EGFR Non-African American 96.6 (>60)
[2018-09-11] MEDS ORDERED: ceFAZolin 2 GM PREMIX in ORs 2 GM/50 ML BAG IVPB SCH (11:00)
--- NOTE | 2018-09-11 11:00 | CONS ---
CONSULTATION REPORT: DATE OF CONSULT: 09/11/18 REQUESTING PHYSICIAN: Dr. Contreras. CONSULTING SERVICE: Infectious Disease. REASON FOR CONSULTATION: Encephalopathy, encephalitis. IMPRESSION: 1. Cephalitis with a CSF pleocytosis and now Staph aureus in the blood, severe low back pain. I suspect she has a parameningeal focus of infection like an epidural abscess that is causing her CSF abnormalities and pain and then likely having a brain dysfunction due to systemic infection. She does not have a focal neurologic finding, so I think a brain abscess is less likely, but still possible. Her mastoids are not tender. She has history of C-spine fusion, which is not tender to palpation in that region. 2. Fibromyalgia. 3. Depression. RECOMMENDATIONS: We will stop vancomycin and ceftriaxone, start Ancef 2 g IV every 8 hours, stop the acyclovir, stop airborne precautions. She will have an MRI with contrast of her lumbar spine and sacrum. She is neurologically intact in her lower extremities now, so does not need a neurosurgical consultation currently. She did have a CT abdomen and pelvis already, which did not identify psoas abscess, which could be another cause of her symptoms, but may be able to find a small one in the MRI as well. HISTORY OF PRESENT ILLNESS: This is a 63-year-old woman who had not been acting herself in the last couple of days. She has also had a few days of drenching sweats. She has had a week and half of severe low back and left sacral pain. Because of worsening pain and more confusion and erratic behavior, she was brought to the hospital yesterday, white count of 8000, she was febrile. She had a lumbar puncture that showed 600 white cells, glucose 24, and protein 600. Gram stain showed no organisms. I discussed the case with Dr. Contreras yesterday. She has been on vancomycin, ceftriaxone, and acyclovir. Since then, her blood cultures have came back 4/4 bottles with Staph aureus, PCR MRSA negative. Today, she complains of severe low back pain, which is midline and then over the left buttock. It is so painful that it is hard for her to move around bed. She does not feel weak in her legs or have numbness or tingling in her legs. She is little bit hungry, feeling a bit better, wondering why she is still having fevers. She has no other joint pain, though she does have diffuse aching in all parts of her body. PAST MEDICAL HISTORY: 1. Fibromyalgia. 2. Depression. 3. Insomnia. 4. Status post hysterectomy. 5. Status post C5-6 diskectomy. 6. Strabismus surgery. ALLERGIES: No known drug allergies. MEDICATIONS: 1. Tylenol. 2. Acyclovir IV every 8 hours. 3. Enoxaparin. 4. Vicodin. 5. Ceftriaxone 2 g. 6. Vancomycin 1 g every 8 hours. SOCIAL HISTORY: She lives in [place]. 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 She is . She lives with her granddaughter. FAMILY HISTORY: Mother had congenital heart disease. Father from COPD and alcoholism at age 66. REVIEW OF SYSTEMS: A 14-point review was all negative except as noted above in the history of present illness. PHYSICAL EXAM: Vital Signs: Temperature is 37.7, heart rate 90, respiratory rate 20, blood pressure 160/90, oxygen saturation 98% on room air. In general, she is awake, not in distress. Neurologic: She is oriented x3, follows commands, moves all the extremities. Cranial nerves II through XII are intact. Strength is 5/5 in the biceps, triceps, or flexor/extensor bilaterally. 5/5 in the quadriceps, tibialis anterior, and gastrocnemius bilaterally. Sensation is intact to light touch in the lower extremities bilaterally. There is no lower extremity clonus bilaterally. HEENT: There is no conjunctival hemorrhage. Oropharynx without lesions. Neck is supple without mass. Heart is regular in rate and rhythm without murmurs, rubs, or gallops. Lungs are clear to auscultation bilaterally. Abdomen is soft, nontender, nondistended. Bowel sounds present. Skin: There is no rash or splinter hemorrhage. Musculoskeletal: No joint synovitis. There is lumbar spine tenderness to palpation and left SI joint tenderness to palpation. LABORATORY DATA: White blood cell count 15, hemoglobin 11, platelets 287. Creatinine 0.6, CRP 240, ALT 113, HIV antibody negative, rheumatoid factor 11. Please see impressions and recommendations outlined above, which I have discussed with Cherry Carrasco NP. Thank you for asking me to see Ms. Mcbride in consultation. [id number]/[facility] #: [id number] [facility] SYSTEM[facility]ed
[2018-09-11] MEDS ORDERED: Lorazepam PYXIS KEY PRN (11:07)
[2018-09-11] MEDS ORDERED: LORazepam INJ* 2 MG/ML 1 ML VIAL IV PUSH ONE ×2 (11:07→16:10)
[2018-09-11] MEDS ORDERED: cefTRIAXone(*) 2 GM in NS 0.9% 100 ML* 100 ML IVPB SCH (12:00)
[2018-09-11 12:36] LABS: TB1 Ag minus Nil Result -0.01 IU/mL; TB2 Ag minus Nil Result -0.02 IU/mL
[2018-09-11 12:55] LABS: QuantiferonTb Gold Plus Result Negative (Negative)
[2018-09-11] MEDS: ceFAZolin VIAL(*) 2 GM in NS 0.9% 100 ML* 100 ML IVPB SCH ×2 (13:04→20:26)
[2018-09-11] MEDS: NS 0.9% 1000 ML** 1,000 ML IV SCH (17:13)
[2018-09-11] MEDS ORDERED: Vancomycin Trough Check NOTE FOLLOW UP ONE (17:30)
[2018-09-11] MEDS ORDERED: Potassium Chlor TAB* 20 MEQ TAB.ER PO ONE (18:22)
--- NOTE | 2018-09-11 18:22 | PN ---
Subjective Date of Service: 09/11/18 Interval History: Patient seen and examined. Complains of low back pain, is very fidgety and uncomfortable. States she had trouble sleeping last night and asked for her home meds to be re-ordered. No fever, no chills. Objective Active Medications: Hydrocodone Bitart/Acetaminophen ([place] 5-325 Tab*) 1 tab PO Q6H PRN PRN Reason: moderate pain Last Admin: 09/11/18 10:44 Dose: 1 tab Duloxetine HCl (Cymbalta Cap*) 120 mg PO BEDTIME [facility] Enoxaparin Sodium (Lovenox(*)) 40 mg SUBCUT Q24H [facility] Last Admin: 09/11/18 04:55 Dose: 40 mg Sodium Chloride (Ns 0.9% 1000 Ml) 1,000 mls @ 100 mls/hr IV PER RATE [facility] Last Admin: 09/11/18 17:13 Dose: 100 mls/hr Cefazolin Sodium 2 gm/ Sodium (Chloride) 100 mls @ 200 mls/hr IVPB Q8H [facility] Last Admin: 09/11/18 13:04 Dose: 200 mls/hr Miscellaneous (Ativan Pyxis [place]) 1 ea N/A .ATIVAN IV ARTEAGA PRN PRN Reason: PYXIS ARTEAGA Morphine Sulfate (Morphine Inj (Syringe))*) 2 mg IV Q4H PRN PRN Reason: SEVERE PAIN Last Admin: 09/11/18 12:51 Dose: 2 mg Trazodone HCl (Desyrel Tab*) 37.5 mg PO BEDTIME [facility] Vital Signs - 8 hr 09/11/18 09/11/18 09/11/18 10:44 12:17 12:51 Temperature 97.5 F Pulse Rate 88 Respiratory 24 22 22 Rate Blood Pressure 143/89 (mmHg) O2 Sat by Pulse Oximetry 09/11/18 09/11/18 15:05 16:19 Temperature 98.8 F Pulse Rate 80 Respiratory 16 16 Rate Blood Pressure 162/76 (mmHg) O2 Sat by Pulse 100 Oximetry Oxygen Devices in Use Now: Nasal Cannula Appearance: alert, moderate distress Eyes: No Scleral Icterus, PERRLA Ears/Nose/Mouth/Throat: NL Teeth, Lips, Gums Neck: NL Appearance and Movements; NL JVP, Trachea Midline Respiratory: Symmetrical Chest Expansion and Respiratory Effort, Clear to Auscultation Cardiovascular: NL Sounds; No Murmurs; No JVD - tachycardic Abdominal: NL Sounds; No Tenderness; No Distention Skin: No Rash or Ulcers Neurological: Alert and Oriented x 3 Nutrition: Taking PO's Result Diagrams: 09/11/18 07:35 09/11/18 07:35 Microbiology and Other Data: Microbiology 09/10/18 11:00 Urine Culture - Final Urine 09/10/18 11:30 CSF Gram Stain (Tube 3) - Final Cerebral Spinal Fluid CSF Culture - Preliminary No Growth Day 1 09/10/18 08:35 Aerobic Blood Culture - Preliminary Blood Venous Staphylococcus Aureus Anaerobic Blood Culture - Preliminary Staphylococcus Aureus Blood MRSA/MSSA (PCR) - Final Mrsa Negative S.aureus Positive 09/10/18 08:41 Aerobic Blood Culture - Preliminary Blood Venous Staphylococcus Aureus Anaerobic Blood Culture - Preliminary Staphylococcus Aureus Blood MRSA/MSSA (PCR) - Final Mrsa Negative S.aureus Positive Diagnostic Imaging: Patient Name: RISSA NOLASCO Medical Record#: [id number] Ordering Physician: Cherry Carrasco NP Acct.#: [id number] : 1955 Age: 63 Sex: F Location: [address] [place] [address] - MEDICAL Exam Date: 09/11/18914 ADM Status: ADM IN Order Information: MRI LUMBAR SPINE W/O Accession Number: [id number] CPT: 65407 Indication: Pain, bacteremia. Image sequences: Sagittal T1, T2, STIR, axial T1 and T2-weighted images of the lumbar spine were obtained. The vertebral bodies appear normal in height. Normal bone marrow edema is noted. Dorsal to the spinal cord from T10 through T12 there is an epidural collection that is ovoid in nature and compressing the spinal cord anteriorly. This is suspicious for an epidural abscess. No evidence of discitis is noted at the present time. The remainder of the intervertebral foramen appear patent. Patient refused further imaging. IMPRESSION: Epidural collection dorsal to the spinal cord and presumably the thecal sac from at least T10-T12. The possibility of epidural abscess should BE considered. Findings called to Vero who is taking care of the patient. Assess/Plan/Problems-Billing Assessment: This is a 63 year old female with history of depression and cervical fusion that presented with complaints of - Patient Problems (1) Staphylococcus aureus bacteremia Code(s): R78.81 - BACTEREMIA SNOMED Code(s): 497054700 Comment: - With acute encephalopathy - MRI brain pending, but TB and other infectious precautions DCd as per Dr. Cason - LP cloudy with 616 WBC count and 623 protein - Viral studies received and still pending - 2/2 Epidural abscess as noted on MRI imaging above - ID following, neurosurgery consulted, neurology consult also appreciated - Continue atbx as per ID with cefazolin and ceftriaxone - Hemodynamically stable (2) Epidural abscess Code(s): G06.2 - EXTRADURAL AND SUBDURAL ABSCESS, UNSPECIFIED SNOMED Code(s): 86584516 Comment: - Neurosurgery consulted - MRI as above - Pain control (3) Fibromyalgia Code(s): M79.7 - FIBROMYALGIA SNOMED Code(s): 031467530 Comment: - Holding pamelor, stable (4) Depression Code(s): F32.9 - MAJOR DEPRESSIVE DISORDER, SINGLE EPISODE, UNSPECIFIED SNOMED Code(s): 62385104 Comment: - Restarted cymbalta today and trazodone this evening (5) DVT prophylaxis Code(s): Z29.9 - ENCOUNTER FOR PROPHYLACTIC MEASURES, UNSPECIFIED SNOMED Code( s): 973787382 Comment: - Lovenox SQ (6) Full code status Code(s): Z78.9 - OTHER SPECIFIED HEALTH STATUS SNOMED Code(s): 036609389
[2018-09-11] MEDS ORDERED: traZODone TAB* 50 MG TAB PO SCH (21:00)
[2018-09-11] MEDS ORDERED: DULoxetine DR CAP* 60 MG CAP.DR PO SCH (21:00)
[2018-09-12] MEDS: Morphine INJ* 2 MG/ML 1 ML SYRINGE (TWO MG - NEW SYRINGE VERSION) IV PRN ×4 (00:06→18:00)
[2018-09-12] MEDS: ceFAZolin VIAL(*) 2 GM in NS 0.9% 100 ML* 100 ML IVPB SCH ×3 (03:35→19:54)
[2018-09-12] MEDS: NS 0.9% 1000 ML** 1,000 ML IV SCH ×2 (04:52→18:00)
[2018-09-12] MEDS: Enoxaparin(*) 40 MG/0.4 ML SYR SUBCUT SCH (05:35)
[2018-09-12] MEDS: HYDROcodone/ACETAMIN 5-325 MG* 1 TAB PO PRN (09:25)
--- NOTE | 2018-09-12 09:28 | PN ---
Progress Note - Progress Note Date of Service: 09/12/18 SOAP: Subjective: CC: back pain HPI: 63 year old woman with low back pain, fever, bacteremia due to MSSA epidural abscess, denies leg weakness or numbness. Feels she is emptying bladder normally. Appetite ok. Pain continues in low back, no joint pain. Objective: Vital Signs Temp 36.3 C 09/12/18 03:15 Pulse 77 09/12/18 03:15 Resp 18 09/12/18 07:45 BP 140/82 09/12/18 03:15 Pulse Ox 94 09/12/18 03:15 Intake & Output 09/11/18 09/12/18 09/12/18 18:59 06:59 18:59 Intake Total 1748 500 0 Balance 1748 500 0 Intake: IV Fluids 548 300 0.9 424 300 Cefazolin 124 Oral 1200 200 0 Other: Estimated Void Medium # Bowel Movements 0 Estimated Stool Amount Large # Voids 2 Gen:awake, no distress HEENT: no thrush Heart:RRR no murmur Lungs:CTA BL Abd:+BS NTDN soft Skin: no rash MSK: L spine tenderness, no C or L spine tenderness Neuro: strength 5/5 quad/TA/gastroc BL LE, sensation intact to light touch BL LE Laboratory Results - last 24 hr 09/10/18 09/10/18 08:42 14:41 Lyme Total Antibody Negative TB Test (QFT) Nil 0.12 TB Test Mitogen - Nil 5.53 TB Test Antigen - Nil -0.02 TB Test (QFT) Negative Assessment: 1. MSSA T spine epidural abscess with bacteremia, neurologically intact 2. Encephalopathy, improving 3. Hx C spine fusion Plan: 1. Continue ancef 2 gm IV Q8hrs, discussed with Dr Henderson who recommended C and T spine with and without contrast and he will see the patient. 35 minutes floor time >50% face to face in discussion of next steps in treatment
[2018-09-12] MEDS ORDERED: NS 0.9% 100 ML* 100 ML ONE (11:43)
[2018-09-12] MEDS ORDERED: Gadoteridol* (CONTRAST) 279.3 MG/ML 10 ML IV ONE (12:24)
--- NOTE | 2018-09-12 13:26 | EEG ---
ELECTROENCEPHALOGRAPHY: DATE OF STUDY: - ROOM #[id number] DATE OF DICTATION: 09/12/18 PATIENT OF: Dr. Contreras. CLINICAL PROBLEM: This is a 63-year-old woman being evaluated for an encephalopathy associated with an inflammatory CSF. MEDICATIONS: Include: 1. Vancomycin. 2. It says acyclovir, but I am not sure whether it has been given while the EEG was running. 3. Rocephin. 4. Hydrocodone. 5. Morphine. REPORT: With the patient awake, background cerebral activity consists of moderate amplitude posterior dominant 8 to 9 Hz rhythm. There is some admixed theta activity at times. The patient never falls asleep. No activation procedures are performed. No epileptiform potentials, focal abnormalities, or major asymmetries of background are present. CLINICAL IMPRESSION: This awake and drowsy EEG shows no major abnormalities. [id number]/[facility] #: [id number] MTDD
[2018-09-12 16:09] VITALS: BP 174/86
[2018-09-12 18:29] LABS: Hematocrit 35 % (35-47); Hemoglobin 11.3 g/dL (12.0-16.0); Mean Corpuscular HGB Conc 32 g/dL (31-36); Mean Corpuscular Hemoglobin 24 pg (27-31); Mean Corpuscular Volume 75 fL (80-97); Mean Platelet Volume 7.5 fL (7.4-10.4); Platelet Count 364 10^3/uL (150-450); Red Blood Count 4.69 10^6 /uL (3.70-4.87); Red Cell Distribution Width 15 % (10-15); White Blood Count 16.3 10^3/uL (3.5-10.8)
[2018-09-12 18:51] LABS: ABS Basophils 0.1 10^3/ul (0-0.2); ABS Lymphocytes 1.6 10^3/ul (1.0-4.8); ABS Monocytes 1.5 10^3/ul (0-0.8); ABS Neutrophils 13.1 10^3/ul (1.5-7.7); Eosinophil % 0.2 %; Lymphocyte % 10.1 %
--- NOTE | 2018-09-12 19:08 | PN ---
ADDENDUM NOW INCLUDED ON THIS REPORT NEUROLOGICAL FOLLOWUP: DATE: 09/12/18 PATIENT OF: MOLLY Negro This is a 63-year-old woman. I just reviewed the MRI scan and came to floor and spoke to Ayesha Verma NP, and the patient. The patient has no complaints of weakness or numbness in the legs, but her pain in her lower back that is sharp, it is like it has gotten worse today compared to yesterday. On exam, temperature 97.9, pulse 80, respiratory rate 18, blood pressure 164/80. She is alert and oriented with normal speech comprehension. Her mentation is cleared from how it had been and she feels it is back to normal. Cranial nerves II through XII are intact. Motor exam revealed normal tone and strength including in the legs. Sensation was intact to light touch. Reflexes were 1+ in the arms, now 3 in the legs, this represents interval change. Toes were downgoing. Chest clear. Cardiovascular: Regular rate and rhythm. Abdomen: Soft with bowel sounds. We were unable to do an MRI scan today as she is could not sit long enough apparently according to Ayesha Verma. I reviewed her cervical, thoracic, and lumbar MRI scan and it does show an enhancing lesion. There is presumed a large epidural abscesses from T4 down to T12 and L1 with severe stenosis at T6 and 7. The cord has a normal signal. There is a loculated paraspinal midline lesion as well at both the T4 and T6 levels of the spine TB was negative. Lyme was negative. Rheumatoid factor 11. I spoke to Ayesha Verma and we discussed that this was a neurosurgical emergency that would need acute drainage. She has spoken to Dr. Byrd, who is coming by now to evaluate him, presumably do a procedure. I discussed with patient that depending on the exact situation, she may need to be transfer for the procedure, but this should be arranged for promptly if Dr. Byrd cannot do it here in near future for whatever reason. At this point, other than the pain, she is having no clinical symptoms from this, including no numbness or weakness, but she does have brisk reflexes today than she has had in the past days, in the legs. I think this may relate to her symptoms. I would also recommend obtaining a noncontrast MRI scan of the brain now. We cannot get contrast scan of the brain because she has had the contrast as the contrast should not be from a before, it may actually enhance slightly. We should make sure to clear the brain before she had her procedure. Her EEG showed no epileptiform potentials. Thank you for sharing her case. ADDENDUM: I found out that Dr. Byrd would not be on-call this weekend, so I spoke to him and we agreed it would be best that she have the surgical procedure at the place where there would be active neurosurgery in the hospital and I have discussed this with Bayron in detail and she is arranging for transfer to a tertiary medical center. Thank you for sharing her case. [id number]/[facility]PS #: [id number] A- [id number]/CPS #: [id number] SAURABH
--- NOTE | 2018-09-12 19:41 | PN ---
PROGRESS NOTE: ADDENDUM: I found out that Dr. Byrd would not be on-call this weekend, so I spoke to him and we agreed it would be best that she have the surgical procedure at the place where there would be active neurosurgery in the hospital and I have discussed this with Bayron in detail and she is arranging for transfer to a tertiary [facility] center. Thank you for sharing her case. [id number]/[facility] #: [id number] SAURABH
--- NOTE | 2018-09-12 19:49 | DS ---
DATE OF ADMISSION: 09/10/2018 DATE OF TRANSFER: 09/12/2018 ACCEPTING FACILITY: [facility] ACCEPTING PHYSICIAN: Dr. Benjamin ATTENDING PHYSICIAN AT [facility]: Dr. Melvin Hicks * (dictated by Ayesha Verma NP). REASON FOR TRANSFER: Epidural abscess. HISTORY OF PRESENT ILLNESS: Ms. Mcbride is a 63-year-old female with a past medical history significant for depression, fibromyalgia, insomnia and history of C5, C6 diskectomy 4 years ago, who initially presented to the emergency room on 09/06/18 complaining of upper back pain since 09/03/18. She denied any injury. She did report that she was gardening and trimming hedges with a broken thread trimmer which reports she thought aggravated her back pain. She did report that the pain radiated to her chest and right shoulder. During that visit to the emergency room the patient did have a CTA of the chest which did not show any acute dissection or pulmonary embolism. Showed cardiomyopathy and atelectasis. The patient was subsequently discharged from the emergency room with musculo-skeletal pain, discharged with Flexeril and hydrocodone for pain management. The patient's symptoms persisted and she returned to the emergency room again complaining of diffuse back pain that was progressively worse since 09/03/18. She returned to the emergency room with new symptoms of GERD, chest pain, unsteady gait, loss of appetite, abdominal pain, hallucinations, thoughts of hearing sheep. She denied any fever, chills, but due to these symptoms hospital medicine was consulted. According to her admission H&P, the patient reported that she initially had flank pain that radiated around to her chest and that lasted for 3 days. She also reported difficulty focusing, decreased appetite, she reported some shortness of breath over the past 2 days, as well as a cough but not bringing up any sputum. She also reported sweating and feeling drenched at night with cold chills. Her ex- did report that she presented to his house at 3 a.m., seemed confused and passed out in the granddaughter's room. When asked if she wanted to come to the hospital she said no. The symptoms persisted so she was brought to the emergency room for further evaluation,. She also reported some nausea and vomiting. No weight loss, no increased thirst. On evaluation today, 09/12/18, she continues to complain of back pain worse with movement. She reports difficulty with focusing and thought process. Is slow to respond to questions at times. the patient did have an MRI of the C spine and T spine which showed a large epidural abscess. Neurology was consulted and neurosurgery was consulted due to no neurosurgery coverage available and extensive epidural abscess, it was recommended by neurology and neurosurgery that the patient be transferred to a higher level of care. Today the patient does continue to have difficulty with word finding. She denies any saddle anesthesia, denies any loss of rectal sensation or numbness or tingling in the groin. She denies numbness or tingling into the upper or lower extremity. Pedal pulses are +2 bilaterally. She is able to move her lower extremities. She does have significant back pain that is exacerbated by movement. Lab work from 09/11/18 did show a white count of 15.3 and her BMP sodium was 133, potassium 3.0, chloride 93 and anion gap was 12. Glucose was 134. BUN was 6 and creatinine 0.62. Repeat labs are pending from today. The patient was placed on Ancef 2 g IV every [address] Cason. She did receive 1 dose of acyclovir in the emergency room 750 mg. She also received vancomycin during this hospitalization which was also discontinued, but then was switched to the Ancef 2g every 8 hours. She did have cerebral spinal fluid that shows no growth x2 days. She did have a urine culture that did not show any growth. She had blood cultures that showed Staphylococcus aureus and Staphylococcus epidermidis, and MSSA positive, MRSA negative in 2 sets of blood cultures which were susceptible to cefazolin, resistant to clindamycin, erythromycin and penicillin. TRANSFER DIAGNOSIS: Epidural abscess T4 to T12, L1 with second paraspinal abscess at T4 to T6. STUDIES COMPLETED WHILE IN THE HOSPITAL: 1. The patient did have blood cultures which were positive for Staphylococcus aureus, Staphylococcus epidermis and MSSA in 2 out of 2 bottles. 2. Her urine culture was negative for any growth. Her cerebral spinal fluid was negative for any growth. 3. She did have CBC from 09/11/18 with WBC 15.3, hemoglobin 11.1, hematocrit 33 , platelet count 287. INR 1.32. 4. Blood work from 09/11/18 sodium 133, potassium 3.0, chloride 93, anion gap 13, carbon dioxide 27, BUN 6, creatinine 0.62, glucose 134. Her C-reactive protein on 09/10/18 was 238.5. AST 89, ALT 13. TSH 1.69 and free T4 was 0.98. repeat CBC and BMP are pending from 09/12/18 5. Urine pH was 5.0, specific gravity 1.006, urine protein and ketones were negative, blood was 3+ nitrates, bilirubin, urobilinogen, leukocyte esterase were all negative. Urine WBC were trace, RBC 3+, squamous epithelial cells were present, bacteria was absent, glucose was negative. 6. Patient did have cerebral LP. Cerebral spinal fluid on 09/10/18 at 11:30 which showed colorless, cloudy, WBC 616, RBC 55, total cell count was 100, neutrophils were 84, monocytes were 16. CSF tube #4 CSF glucose was 24 and CSF total protein was 623. 7. Patient had rheumatoid factor which was 11. 8. She had Lyme total antibody that was negative. 9. HIV 1&2 Abs/p24 Ag fourth generation was negative. 10. TBQFT was 0.12, TB test MonoGen was 5.53, TB test antigen was 0.02 negative and TB test QFT was negative. 11. She had a CT of the brain on 09/10/18. Radiologist impression: No evidence of acute intracranial abnormality. 12. She had a CT of the abdomen and pelvis on 09/10/18. Radiologist impression : Nonobstructing calculi lower pole of the right kidney. No obstructive uropathy was noted. Bibasilar atelectasis, likely small left pleural effusion. 13. She has an MRI of the L spine on 09/11/18. Radiologist impression: Epidural collection dorsal to the spinal cord presumable to the thecal sac from at least T10 to T12, possible epidural abscess should be considered. 14. She had a cervical and thoracic MRI on 09/12/18 which showed large presumed epidural abscess extends from T4, T5 through T12 to L1. It causes severe spinal canal stenosis at T6 to T7, severe canal stenosis at least moderate along the remaining segment of the collection. Spinal cord is grossly normal signal. A 4.7 x 2.4 x 1.6 cm posterior midline paraspinal loculated collection extending along the interspinous process is seen from T4 to T6. 15. She had an electroencephalogram. The awake and drowsy EEG showed no major abnormalities. 16. MRI of the brain was not completed today as this would delay transfer- would recommend MRI of the Brain upon arrival to [facility] as per neurology recommendations. The patient was seen in consultation by infectious disease 09/11/18 who reported encephalitis with CSF phagocytoses now Staph aureus in the blood, severe low back pain, suspected that this was parameningeal focus of infection likely epidural abscess causing CSF abnormalities and pain, then likely having brain dysfunction due to systemic infection. She does not have any focal neurological findings so brain abscess was less likely, but still possible. Infection disease recommended stopping vancomycin and ceftriaxone and starting Ancef 2 g every 8 hours, stopping acyclovir and stopping airborne precautions. Her recommended an MRI with contrast of the L spine which was completed, as well as T spine and C spine. She was followed up with infectious disease recommendations today continue Ancef 2 g every 8 hours and ordered C and T spine MRI with and without contrast as per neurosurgery's recommendation. Patient with history of C spine fusion. Due to lack of neurosurgery coverage the patient will be transferred to [facility]. CURRENT MEDICATIONS: 1. Ancef 2 g IV every 8 hours. 2. Duloxetine 120 mg at bedtime. 3. Lovenox 40 mg subcutaneous every 8 hours. (last dose 09/12/18 0535) 4. Hydrocodone 1 tab every 6 hours as needed. 5. Morphine 2 mg every 2 hours as needed for severe pain. 6. She did receive potassium 40 mEq once. 7. Trazodone 37.5 mg p.o. at bedtime. At this time Dr. Benjamin at [facility] has accepted the patient for transfer. The patient will be transferred via [facility] to [facility] for further management of her epidural abscess. CONDITION ON TRANSFER: Guarded. DISPOSITION ON TRANSFER: [facility]. I have discussed this with my attending Dr. Melvin Hicks; he is in agreement with my plan. AYESHA SHELDON, [employer] ENGINEERING PROFESSOR [id number]/[facility] #: [id number] [facility]
--- NOTE | 2018-09-12 19:56 | PN ---
Subjective Date of Service: 09/12/18 Interval History: Patient continues to report severe back pain, very restless in the bed. Denies fever or chills, Denies chest pain or shortness of breath. Patient does report difficult conveying thoughts. Patient denies any recent dental work, Denies any recent surgeries. reports that last surgery was 4 years ago when she had a cervical fusion. Denies numbness to extremities. Denies perineal or rectal numbness. denies loss of bowel or bladder function. MRI C and T spine today showed large epidural abscess from T4-5 to T12-L1 spoke to neurology and neurosurgery - patient will need to be transferred for surgical intervention patient was accepted at [facility] in [place] by Dr. Nix Family History: Unchanged from Admission Social History: Unchanged from Admission Past Medical History: Unchanged from Admission Objective Active Medications: Hydrocodone Bitart/Acetaminophen (Burnet 5-325 Tab*) 1 tab PO Q6H PRN PRN Reason: moderate pain Last Admin: 09/12/18 09:25 Dose: 1 tab Duloxetine HCl (Cymbalta Cap*) 120 mg PO BEDTIME [facility] Last Admin: 09/11/18 20:27 Dose: 120 mg Enoxaparin Sodium (Lovenox(*)) 40 mg SUBCUT Q24H [facility] Last Admin: 09/12/18 05:35 Dose: 40 mg Sodium Chloride (Ns 0.9% 1000 Ml) 1,000 mls @ 100 mls/hr IV PER RATE [facility] Last Admin: 09/12/18 18:00 Dose: 100 mls/hr Cefazolin Sodium 2 gm/ Sodium (Chloride) 100 mls @ 200 mls/hr IVPB Q8H [facility] Last Admin: 09/12/18 11:48 Dose: 200 mls/hr Miscellaneous (Ativan Pyxis Arteaga) 1 ea N/A .ATIVAN IV ARTEAGA PRN PRN Reason: PYXIS ARTEAGA Morphine Sulfate (Morphine Inj (Syringe))*) 2 mg IV Q4H PRN PRN Reason: SEVERE PAIN Last Admin: 09/12/18 18:00 Dose: 2 mg Trazodone HCl (Desyrel Tab*) 37.5 mg PO BEDTIME [facility] Last Admin: 09/11/18 20:27 Dose: 37.5 mg Vital Signs - 8 hr 09/12/18 09/12/1819 14:26 15:15 18:00 Temperature 97.6 F Pulse Rate 81 Respiratory 18 20 18 Rate Blood Pressure 174/86 (mmHg) O2 Sat by Pulse 99 Oximetry Oxygen Devices in Use Now: None Appearance: alert oriented x2 , restless - appears uncomfortable Eyes: No Scleral Icterus Ears/Nose/Mouth/Throat: Clear Oropharnyx, Mucous Membranes Moist Neck: NL Appearance and Movements; NL JVP, Trachea Midline Respiratory: Symmetrical Chest Expansion and Respiratory Effort, Clear to Auscultation Cardiovascular: NL Sounds; No Murmurs; No JVD, No Edema Abdominal: NL Sounds; No Tenderness; No Distention Extremities: No Edema, No Clubbing, Cyanosis, - - pedal pulses +2 Skin: No Rash or Ulcers Neurological: Alert and Oriented x 3, - - slow to respond to questions, difficulty with processing thoughts Nutrition: - - npo Result Diagrams: 09/12/18 18:01 09/11/18 07:35 Microbiology and Other Data: Microbiology 09/10/18 11:00 Urine Culture - Final Urine 09/10/18 11:30 CSF Gram Stain (Tube 3) - Final Cerebral Spinal Fluid CSF Culture - Preliminary No Growth Day 1 09/10/18 08:35 Aerobic Blood Culture - Preliminary Blood Venous Staphylococcus Aureus Anaerobic Blood Culture - Preliminary Staphylococcus Aureus Blood MRSA/MSSA (PCR) - Final Mrsa Negative S.aureus Positive 09/10/18 08:41 Aerobic Blood Culture - Preliminary Blood Venous Staphylococcus Aureus Anaerobic Blood Culture - Preliminary Staphylococcus Aureus Blood MRSA/MSSA (PCR) - Final Mrsa Negative S.aureus Positive Diagnostic Imaging: Patient Name: RISSA NOLASCO Medical Record#: [id number] Ordering Physician: Cherry Carrasco NP Acct.#: [id number] : 1955 Age: 63 Sex: F Location: [address] [place] [address] - MEDICAL Exam Date: 09/11/18914 ADM Status: ADM IN Order Information: MRI LUMBAR SPINE W/O Accession Number: [id number] CPT: 61599 Indication: Pain, bacteremia. Image sequences: Sagittal T1, T2, STIR, axial T1 and T2-weighted images of the lumbar spine were obtained. The vertebral bodies appear normal in height. Normal bone marrow edema is noted. Dorsal to the spinal cord from T10 through T12 there is an epidural collection that is ovoid in nature and compressing the spinal cord anteriorly. This is suspicious for an epidural abscess. No evidence of discitis is noted at the present time. The remainder of the intervertebral foramen appear patent. Patient refused further imaging. IMPRESSION: Epidural collection dorsal to the spinal cord and presumably the thecal sac from at least T10-T12. The possibility of epidural abscess should BE considered. Findings called to Vero who is taking care of the patient. Assess/Plan/Problems-Billing Assessment: This is a 63 year old female with history of depression and cervical fusion that presented with complaints of - Patient Problems (1) Staphylococcus aureus bacteremia Current Visit: Yes Status: Acute Code(s): R78.81 - BACTEREMIA SNOMED Code( s): 746702078 Comment: - With acute encephalopathy - MRI brain pending- were unable to complete today did not want to delay transfer so MRI of the brain was not completed - patient being transferred [facility] - would recommend MRI to completed at [facility] - TB and other infectious precautions DCd as per Dr. Cason - LP cloudy with 616 WBC count and 623 protein, glucose 24 - Viral studies received and still pending - 2/2 Epidural abscess as noted on MRI imaging above - ID following -neurosurgery consulted- requested MRI C/T spine - which showed large epidural abscess from t4- l1 and 2 collection paraspinal t4-6- neurosurgery aware - d/t no neurosurgery availability this weekend - patient will need to be transferred - neurology consulted recommended transfer to higher level of care d/t no neurosurgery availability this weekend- to contiue managment of this patient - Continue atbx as per ID with cefazolin - Hemodynamically stable (2) Epidural abscess Current Visit: Yes Status: Acute Code(s): G06.2 - EXTRADURAL AND SUBDURAL ABSCESS, UNSPECIFIED SNOMED Code(s): 12877292 Comment: - Neurosurgery consulted- patient will need surgery no neurosery available this weekend, patient will need to be transferred - MRI as above - Pain control (3) Depression Current Visit: Yes Status: Acute Code(s): F32.9 - MAJOR DEPRESSIVE DISORDER , SINGLE EPISODE, UNSPECIFIED SNOMED Code(s): 39018507 Comment: - conitnue cymbalta and trazodone (4) Fibromyalgia Current Visit: Yes Status: Acute Code(s): M79.7 - FIBROMYALGIA SNOMED Code (s): 475031746 Comment: - Holding pamelor, stable (5) DVT prophylaxis Current Visit: Yes Status: Acute Code(s): Z29.9 - ENCOUNTER FOR PROPHYLACTIC MEASURES, UNSPECIFIED SNOMED Code(s): 816193307 Comment: - Lovenox SQ- last dose 0535 today - will d/c pending surgery (6) Full code status Current Visit: Yes Status: Acute Code(s): Z78.9 - OTHER SPECIFIED HEALTH STATUS SNOMED Code(s): 791273084 Status and Disposition: transfer [facility]
[2018-09-12 21:04] LABS: Calcium 8.4 mg/dL (8.6-10.3)
[2018-09-12 21:08] LABS: Potassium 3.6 mmol/L (3.5-5.0)
[2018-09-12 21:10] LABS: BUN/Creatinine Ratio 16.7 (8-20); EGFR African American 121.4 (>60); EGFR Non-African American 100.3 (>60)
[2018-09-13 00:46] LABS: HSV 1 PCR, CSF Negative (Negative); HSV 2 PCR, CSF Negative (Negative)
== END 2018-09-12 19:15 | disposition short-term general hospital (02) | DRG 94 ==
LOC: ED 07:07 → MED 15:29
PROVIDERS: ADMIT Hospitalist; ATTEND Internal Medicine
PROC: 009U3ZX Drainage of Spinal Canal, Percutaneous Approach, Diagnostic (ICD-10-PCS; principal; 2018-09-10)
DX: G06.1 Intraspinal abscess and granuloma (principal); G04.2 Bacterial meningoencephalitis and meningomyelitis, not elsewhere classified; J90 Pleural effusion, not elsewhere classified; I42.9 Cardiomyopathy, unspecified; L97.929 Non-pressure chronic ulcer of unspecified part of left lower leg with unspecified severity; L97.919 Non-pressure chronic ulcer of unspecified part of right lower leg with unspecified severity; R44.0 Auditory hallucinations; J98.11 Atelectasis; M48.04 Spinal stenosis, thoracic region; L98.429 Non-pressure chronic ulcer of back with unspecified severity; B95.61 Methicillin susceptible Staphylococcus aureus infection as the cause of diseases classified elsewhere; L98.499 Non-pressure chronic ulcer of skin of other sites with unspecified severity; K21.9 Gastro-esophageal reflux disease without esophagitis; R10.9 Unspecified abdominal pain; R51 Headache; M79.7 Fibromyalgia; F32.9 Major depressive disorder, single episode, unspecified; G47.00 Insomnia, unspecified; Z79.899 Other long term (current) drug therapy; Z82.49 Family history of ischemic heart disease and other diseases of the circulatory system; Z82.5 Family history of asthma and other chronic lower respiratory diseases; Z81.1 Family history of alcohol abuse and dependence
CPT/HCPCS: 36415; 70450; 72148; 72156; 72157; 74176; 80048; 80053; 81003; 81015; 82945; 83519; 83520; 83605; 84157; 84439; 84443; 84484; 85025; 85027; 85060; 85610; 85652; 85730; 86038; 86140; 86255; 86256; 86431; 86481; 86618; 87040; 87070; 87077; 87086; 87150; 87186; 87205; 87389; 87529; 87899; 89051; 95816; 99284; A9270-GY; A9579; J0133; J0690; J0696; J1650; J2060; J2270; J3370

== ENCOUNTER 2018-09-23 12:12 | Emergency (ER) | payer MEDICARE ==
--- NOTE | 2018-09-23 12:30 | ED ---
Complex/Multi-Sys Presentation - HPI Summary HPI Summary: This pt is a 63 y/o female presenting to [facility] for elevated potassium level. Pt reports she was at [facility] for back pain and was found to have an epidural abscess. She was transferred to [facility] to have emergent surgery on 09/12/18. She states she had lab work done 2 days ago and today she received a call from [facility] infectious disease alerting her of potassium level of 7.4. Pt was advised to come to the ED. She denies any complaints. Pt is on a 24 hour antibiotic, Cephalexin, infusion through midline for 6 weeks. Denies taking any other antibiotics. PMHx includes fibromyalgia, depression, epidural abscess T4-T12. Denies any kidney problems. - History Of Current Complaint Chief Complaint: EDGeneral Time Seen by Provider: 09/23/18 12:16 Hx Obtained From: Patient Severity Currently: None Location: Negative Aggravating Factor(s): nothing Alleviating Factor(s): nothing Associated Signs And Symptoms: Negative: SOB, Chest Pain, Palpitations, Abdominal Pain, Fever Related History: Recent Hospitalization - and surgery for epidural abscess - Allergies/Home Medications Allergies/Adverse Reactions: Allergies Allergy/AdvReac Type Severity Reaction Status Date / Time No Known Allergies Allergy Verified 09/23/18 12:21 PMH/Surg Hx/FS Hx/Imm Hx Endocrine/Hematology History: Denies: Hx Diabetes, Other Endocrine/Hematological Disorders Cardiovascular History: Reports: Other Cardiovascular Problems/Disorders - palpitations Denies: Hx Hypertension, Hx Pacemaker/ICD Respiratory History: Denies: Other Respiratory Problems/Disorders GI History: Denies: Other GI Disorders History: Denies: Other Problems/Disorders Musculoskeletal History: Reports: Hx Fibromyalgia, Hx Osteoporosis Denies: Other Musculoskeletal History Sensory History: Reports: Hx Contacts or Glasses - GLASSES, Hx Vision Problem Denies: Hx Hearing Aid, Other Sensory Impairments Opthamlomology History: Reports: Hx Contacts or Glasses - GLASSES, Hx Vision Problem Denies: Other Sensory Impairments Neurological History: Reports: Hx Headaches, Hx Migraine Denies: Other Neuro Impairments/Disorders Psychiatric History: Reports: Hx Depression Denies: Hx Panic Disorder, Other Psychiatric Issues/Disorders - Cancer History Hx Chemotherapy: No Hx Radiation Therapy: No - Surgical History Surgical History: Yes Surgery Procedure, Year, and Place: Bilat eye surg muscle correction. total abdominal hysterectomy. Epidural abscess surgery on 09/12/18. Hx Anesthesia Reactions: Yes - SEVERE NAUSEA; LOW BP AFTER HYSTERECTOMY Infectious Disease History: No Infectious Disease History: Denies: Traveled Outside the [place] in Last 30 Days - Family History Known Family History: Positive: Cardiac Disease, Hypertension Family History: negative anesthesia reaction - Social History Alcohol Use: None Hx Substance Use: No Substance Use Type: Reports: None Hx Tobacco Use: No Smoking Status (MU): Never Smoked Tobacco Review of Systems Negative: Fever, Chills Cardiovascular: Negative Respiratory: Negative Gastrointestinal: Negative All Other Systems Reviewed And Are Negative: Yes Physical Exam - Summary Physical Exam Summary: Constitutional: Well-developed, Well-nourished, Alert. (-) Distressed Skin: Warm, Dry. 8 cm incision on upper thoracic spine with a wound vac, it is dry, clean, no purulent drainage noted. HENT: Normocephalic; Atraumatic Eyes: Conjunctiva normal Neck: Musculoskeletal ROM normal neck, no nuchal rigidity Cardio: Rhythm regular, rate normal, Heart sounds normal; Intact distal pulses; Radial pulses are 2+ and symmetric. (-) Murmur Pulmonary/Chest wall: Effort normal. (-) Respiratory distress, Abd: non distended Musculoskeletal: (-) Edema Neuro: Alert, Oriented x3 Psych: Mood and affect Normal Triage Information Reviewed: Yes Vital Signs On Initial Exam: Initial Vitals Temp Pulse Resp BP Pulse Ox 98.1 F 86 17 130/81 100 09/23/18 12:19 09/23/18 12:19 09/23/18 12:19 09/23/18 12:19 09/23/18 12:19 Vital Signs Reviewed: Yes Diagnostics - Vital Signs Vital Signs Temp Pulse Resp BP Pulse Ox 09/23/18 12:19 98.1 F 86 17 130/81 100 - Laboratory Result Diagrams: 09/23/18 12:50 09/23/18 12:50 Lab Statement: Any lab studies that have been ordered have been reviewed, and results considered in the medical decision making process. - EKG 12:27 Cardiac Rate: NL - at 86 bpm EKG Rhythm: Sinus Rhythm Summary of EKG Findings: An EKG at 12:27 reveals normal sinus rhythm at 86 bpm, nml axis, nml intervals. No STEMI. No acute changes. Re-Evaluation - Re-Evaluation First Eval Re-Evaluation Time: 12:46 Comment: Pt reporting seeing colors of left eye, similar to tu pyle. She states this happens when she gets migraines, which she gets frequent. No headache, no current medications. Second Eval Change: Improved Comment: Labs notable for potassium of 4.3. Suspect hyperkalemia on previous labs secondary to hemolysis. Globally from 11, suspect this is secondary to recent surgery and illness however patient instructed to return if she has any signs of bleeding, fatigue. Third Eval Re-Evaluation Time: 13:28 Comment: Discussed lab results with pt. She will be discharged home. Complex Multi-Symp Course/Dx Course Of Treatment: ) 63-year-old female with a history of recently diagnosed epidural abscess after presenting with back pain sent in by ID for concern for hyperkalemia on labs. - check CBC, CMP, EKG - Diagnoses Provider Diagnoses: Abnormal laboratory test, Anemia Discharge - Sign-Out/Discharge Documenting (check all that apply): Patient Departure - Discharge home Patient Received Moderate/Deep Sedation with Procedure: No - Discharge Plan Condition: Stable Disposition: HOME Patient Education Materials: Anemia (ED) Referrals: Issa Sahu MD [Medical Doctor] - Additional Instructions: You were seen in the emergency department for a high potassium on previous labs Your labs showed potassium of 4.3 which is within normal limits Your hemoglobin was low today this is likely secondary to recent surgery however if you notice any signs of bleeding please return to the emergency department. If any studies were not completed at the time of discharge you will be called with the relevant results. Please follow up with your primary care doctor in next 2-3 days and return to emergency department for worsening or concerning symptoms. - Billing Disposition and Condition Condition: STABLE Disposition: Home - Attestation Statements Document Initiated by Rosa Mariaibkailyn: Yes Documenting Scribe: Mikki Davis Provider For Whom Carolyne is Documenting (Include Credential): Kory Beasley MD Scribe Attestation: Mikki Brito, scribed for Kory Beasley MD on 09/23/18 at 1441. Scribe Documentation Reviewed: Yes Provider Attestation: The documentation as recorded by the Mikki pat accurately reflects the service I personally performed and the decisions made by , Kory Beasley MD Status of Scribe Document: Viewed
[2018-09-23 13:12] LABS: ABS Basophils 0.1 10^3/ul (0-0.2); ABS Eosinophils 0.1 10^3/ul (0-0.6); ABS Lymphocytes 1.6 10^3/ul (1.0-4.8); ABS Monocytes 0.8 10^3/ul (0-0.8); ABS Neutrophils 9.1 10^3/ul (1.5-7.7); Eosinophil % 0.7 %; Hematocrit 25 % (35-47); Hemoglobin 8.1 g/dL (12.0-16.0); Lymphocyte % 13.7 %; Mean Corpuscular HGB Conc 32 g/dL (31-36); Mean Corpuscular Hemoglobin 25 pg (27-31); Mean Corpuscular Volume 78 fL (80-97); Platelet Count 938 10^3/uL (150-450); Red Blood Count 3.22 10^6 /uL (3.70-4.87); Red Cell Distribution Width 18 % (10-15); White Blood Count 11.7 10^3/uL (3.5-10.8)
[2018-09-23 13:17] LABS: Albumin 3.2 g/dL (3.2-5.2); Albumin/Globulin Ratio 0.8 (1-3); BUN/Creatinine Ratio 19.5 (8-20); Calcium 8.8 mg/dL (8.6-10.3); EGFR African American 84.7 (>60); Globulin 4.1 g/dL (2-4); Potassium 4.3 mmol/L (3.5-5.0); Total Bilirubin 0.4 mg/dL (0.2-1.0); Total Protein 7.3 g/dL (6.4-8.9)
[2018-09-23 13:29] VITALS: BP 140/78
== END 2018-09-23 13:38 | disposition home or self-care (01) ==
LOC: ED 12:12
DX: R79.9 Abnormal finding of blood chemistry, unspecified (principal); D64.9 Anemia, unspecified; M79.7 Fibromyalgia
CPT/HCPCS: 36415; 80053; 85025; 93005; 99282

== ENCOUNTER → 2018-09-25 02:35 | Emergency (ER) | payer MEDICARE ==
[~2018-09-25 02:35] MED LIST: Acetaminophen TAB* 325 MG PO ONE; Enoxaparin(*) 80 MG/0.8 ML SYR SUBCUT ONE; traMADol TAB* 50 MG PO ONE
--- NOTE | 2018-09-25 03:19 | ED ---
Upper Extremity Pain - HPI Summary HPI Summary: This patient is a 63 year old F presenting to [facility] accompanied by ex- with a chief complaint of left arm pain since 09/24/18. She reports she had a midline placed for 24 hour antibiotic therapy, and the pain intensified on . Pt had an abscess removed from back on 09/12/18. Patient reports back pain. Patient denies fever. The patient rates the pain 10/10 in severity. - History of Current Complaint Chief Complaint: EDGeneral Stated Complaint: IV LINE PLACED AND IN PAIN PER PT Time Seen by Provider: 09/25/18 02:55 Hx Obtained From: Patient Mechanism Of Injury: Other Onset/Duration: Started Hours Ago Timing: Constant Severity Initially: Moderate Severity Currently: Severe Pain Location: Arm Alleviating Factor(s): Nothing Associated Signs & Symptoms: Positive: Back Pain. Negative: Fever - Allergies/Home Medications Allergies/Adverse Reactions: Allergies Allergy/AdvReac Type Severity Reaction Status Date / Time No Known Allergies Allergy Verified 09/23/18 12:21 Home Medications: Home Medications traZODone TAB* 50 mg PO DAILY 09/25/18 [History Confirmed 09/25/18] PMH/Surg Hx/FS Hx/Imm Hx Endocrine/Hematology History: Denies: Hx Diabetes, Other Endocrine/Hematological Disorders Cardiovascular History: Reports: Other Cardiovascular Problems/Disorders - palpitations Denies: Hx Hypertension, Hx Pacemaker/ICD Respiratory History: Denies: Other Respiratory Problems/Disorders GI History: Denies: Other GI Disorders History: Denies: Other Problems/Disorders Musculoskeletal History: Reports: Hx Fibromyalgia, Hx Osteoporosis Denies: Other Musculoskeletal History Sensory History: Reports: Hx Contacts or Glasses - GLASSES, Hx Vision Problem Denies: Hx Hearing Aid, Other Sensory Impairments Opthamlomology History: Reports: Hx Contacts or Glasses - GLASSES, Hx Vision Problem Denies: Other Sensory Impairments Neurological History: Reports: Hx Headaches, Hx Migraine Denies: Other Neuro Impairments/Disorders Psychiatric History: Reports: Hx Depression Denies: Hx Panic Disorder, Other Psychiatric Issues/Disorders - Cancer History Hx Chemotherapy: No Hx Radiation Therapy: No - Surgical History Surgery Procedure, Year, and Place: Bilat eye surg muscle correction ,total abdominal hysterectomy Hx Anesthesia Reactions: Yes - SEVERE NAUSEA; LOW BP AFTER HYSTERECTOMY Infectious Disease History: No Infectious Disease History: Denies: Traveled Outside the [place] in Last 30 Days - Family History Known Family History: Positive: Cardiac Disease, Hypertension Family History: negative anesthesia reaction - Social History Occupation: Employed Full-time Alcohol Use: None Hx Substance Use: No Substance Use Type: Reports: None Hx Tobacco Use: No Smoking Status (MU): Never Smoked Tobacco Review of Systems Negative: Fever Positive: Other - pos - back pain, left arm pain All Other Systems Reviewed And Are Negative: Yes Physical Exam - Summary Physical Exam Summary: VITAL SIGNS: Reviewed. GENERAL: Patient is a well-developed and nourished female who is lying comfortable in the stretcher. Patient is not in any acute respiratory distress. HEAD AND FACE: No signs of trauma. No ecchymosis, hematomas or skull depressions. No sinus tenderness. EYES: PERRLA, EOMI x 2, No injected conjunctiva, no nystagmus. EARS: Hearing grossly intact. Ear canals and tympanic membranes are within normal limits. MOUTH: Oropharynx within normal limits. NECK: Supple, trachea is midline, no adenopathy, no JVD, no carotid bruit, no c- spine tenderness, neck with full ROM CHEST: Symmetric, no tenderness at palpation LUNGS: Clear to auscultation bilaterally. No wheezing or crackles. CVS: Regular rate and rhythm, S1 and S2 present, no murmurs or gallops appreciated. ABDOMEN: Soft, non-tender. No signs of distention. No rebound no guarding, and no masses palpated. Bowel sounds are normal. EXTREMITIES: FROM in all major joints, no edema, no cyanosis or clubbing. Midline over the left upper arm and tenderness over left upper arm medially without swelling, or redness BACK: Tape over wound incision 5 cm over upper mid back. Tape over right side of the back where wound bag is connected NEUROVASCULAR: intact distally over left upper arm NEURO: Alert and oriented x 3. No acute neurological deficits. Speech is normal and follows commands. SKIN: Dry and warm Triage Information Reviewed: Yes Vital Signs On Initial Exam: Initial Vitals Temp Pulse Resp BP Pulse Ox 99.6 F 115 20 110/82 98 09/25/18 02:36 09/25/18 02:36 09/25/18 02:36 09/25/18 02:36 09/25/18 02:36 Vital Signs Reviewed: Yes Diagnostics - Vital Signs Vital Signs Temp Pulse Resp BP Pulse Ox 09/25/18 02:36 99.6 F 115 20 110/82 98 - Laboratory Lab Statement: Any lab studies that have been ordered have been reviewed, and results considered in the medical decision making process. Course/Dx - Course Course Of Treatment: This patient is a 63 year old F presenting to [facility] accompanied by ex- with a chief complaint of left arm pain since . She reports she had a midline placed for 24 hour antibiotic therapy, and the pain intensified on 09/24/18. Pt had an abscess removed from back on . Patient reports back pain. Patient denies fever. The patient rates the pain 10/10 in severity. Physical exam findings are nml except Midline over the left upper arm and tenderness over left upper arm medially without swelling, or redness, tape for wound incision 5 cm over upper mid back, Tape over right side of the back where wound back is connected, and , neurovascular: intact distally over left upper arm. Pt is a sign out to Dr. Ramos from Dr. Ramey at shift change at 0700 on 09/25/18 pending ultrasound. - Diagnoses Provider Diagnoses: Arm pain Discharge - Sign-Out/Discharge Documenting (check all that apply): Sign-Out Patient Signing out patient TO: Keenan Ramos Receiving patient FROM: Sanjuanita Ramey - Pt is a sign out to Dr. Ramos from Dr. Ramey at shift change at 0700 on 09/25/18 pending ultrasound. Patient Received Moderate/Deep Sedation with Procedure: No - Discharge Plan Referrals: [facility],Debbie Terrell [Primary Care Provider] - - Attestation Statements Document Initiated by Scribe: Yes Documenting Scribe: Tana Hernandez Provider For Whom Scribe is Documenting (Include Credential): Dr. Sanjuanita Ramey MD Scribe Attestation: Tana Brito, scribed for Dr. Sanjuanita Ramey MD on 09/25/18 at 0704.
--- NOTE | 2018-09-25 07:06 | ED ---
Progress - Progress Note Progress Note: The patient is a sign-out from Dr. Sanjuanita Ramey MD, to Dr. Keenan Ramos MD, at change of shift at 0700 on 09/25/18, pending US Upper Extremity Venous Doppler and disposition. US Venous Doppler Impression: 1. No sonographic evidence of deep vein thrombosis. 2. Occlusive thrombus in the left basilic vein at the level of the humerus. As demonstrated by US results, the patient is diagnosed with superficial venous thrombus on midline catheter, following spinal surgery for epidural abscess 10 days ago from which she has sustained pain, swelling, and erythema. PICC Line was placed in the patient's arm, and the mid line was removed. I spoke with Dr. Mckinnon, who did the patient's spinal surgery. He is okay with using Xarelto, but would rather use easily reversible agents such as Coumadin. Lovenox and Coumadin will be given to the patient. She needs to continuously be on anticoagulants; she is advised to follow up with her PCP or [facility] in order to receive longer prescription within the next 2-3 days. She agrees with this plan. - Results/Orders Results/Orders: US Upper Extremity Venous Doppler Impression: 1. No sonographic evidence of deep vein thrombosis. 2. Occlusive thrombus in the left basilic vein at the level of the humerus. ED physician has reviewed this report. Re-Evaluation - Re-Evaluation First Eval Re-Evaluation Time: 09:55 Comment: I discussed US results with the patient. I also told her that based on the results, transfer may be necessary. Second Eval Re-Evaluation Time: 12:15 Comment: I discussed discharge with the patient and instructions for blood thinner usage. Course/Dx - Course Course Of Treatment: The patient is a sign-out from Dr. Sanjuanita Ramey MD, to Dr. Keenan Ramos MD, at change of shift at 0700 on 09/25/18, pending US Upper Extremity Venous Doppler and disposition. US Venous Doppler Impression: 1. No sonographic evidence of deep vein thrombosis. 2. Occlusive thrombus in the left basilic vein at the level of the humerus. As demonstrated by US results, the patient is diagnosed with superficial venous thrombus on midline catheter, following spinal surgery for epidural abscess 10 days ago from which she has sustained pain, swelling, and erythema. PICC Line was placed in the patient's arm, and the mid line was removed. I spoke with Dr. Mckinnon, who did the patient's spinal surgery. He is okay with using Xarelto, but would rather use easily reversible agents such as Coumadin. Lovenox and Coumadin will be given to the patient. She needs to continuously be on anticoagulants; she is advised to follow up with her PCP or [facility] in order to receive longer prescription within the next 2-3 days. She agrees with this plan. - Diagnoses Provider Diagnoses: Superficial venous thrombosis of arm - Provider Notifications Discussed Care Of Patient With: Dr. Stalin Mckinnon - spinal surgeon Time Discussed With Above Provider: 12:00 Instructed by Provider To: Other - Dr. Cabrera reports he is okay with the patient using Xarelto, but he perfers Coumadin as it is easily reversible. Discharge - Sign-Out/Discharge Documenting (check all that apply): Patient Departure - Patient will be discharged home., Receiving Sign-Out Receiving patient FROM: Sanjuanita Ramey - Patient is a sign-out from Dr. Sanjuanita Ramey MD, at change of shift at 0700 on 09/25/18, pending US Upper Extremity Upper Extremity Venous Doppler and disposition. Patient Received Moderate/Deep Sedation with Procedure: No - Discharge Plan Condition: Stable Disposition: HOME Prescriptions: Enoxaparin(*) [Lovenox(*)] 75 mg SUBCUT Q12HR #14 syringe Enoxaparin(*) [Lovenox(*)] 75 mg SUBCUT BID #14 syringe Patient Education Materials: Venous Thromboembolism (ED) Referrals: [facility] [Outside] - 2 Days Debbie Melendez MD [Primary Care Provider] - 2 Days Additional Instructions: Follow up with [facility] in the next 2-3 days so that you can continuously be on blood thinners, such as Coumadin, which you should receive at the appointment. RETURN TO THE EMERGENCY DEPARTMENT FOR ANY NEW OR WORSENING SYMPTOMS. - Billing Disposition and Condition Condition: STABLE Disposition: Home - Attestation Statements Document Initiated by Carolyne: Yes Documenting Scribe: Xochilt Smallwood Provider For Whom Carolyne is Documenting (Include Credential): Dr. Keenan Ramos MD Scribe Attestation: Xochilt Brito scribed for Dr. Keenan Ramos MD on 09/25/18 at 2038. Status of Scribe Document: Ready
[2018-09-25 12:51] VITALS: BP 138/85
== END | disposition home or self-care (01) ==
LOC: ED 02:35
DX: I82.612 Acute embolism and thrombosis of superficial veins of left upper extremity (principal); Z79.899 Other long term (current) drug therapy
CPT/HCPCS: 96372; 99283; A9270-GY; J1650

== ENCOUNTER 2018-09-28 08:40 | Emergency (ER) | payer MEDICARE ==
--- NOTE | 2018-09-28 09:13 | ED ---
Complex/Multi-Sys Presentation - HPI Summary HPI Summary: Pt is a 63 y/o F presenting to the ED with a chief complaint of a problem with her wound vac. She states she had spinal surgery on the , and she was placed on a wound vac afterwards. It has failed twice, the second time being today, and her home health aides are unable to assist until later in the day, so she is worried about infection. She also reports high levels of anxiety. - History Of Current Complaint Chief Complaint: EDGeneral Time Seen by Provider: 09/28/18 09:04 Hx Obtained From: Patient Onset/Duration: Lasting Hours, Still Present Timing: Constant, Hours Severity Currently: None Location: Negative Associated Signs And Symptoms: Positive: Other - issue with wound vac - Allergies/Home Medications Allergies/Adverse Reactions: Allergies Allergy/AdvReac Type Severity Reaction Status Date / Time No Known Allergies Allergy Verified 09/28/18 09:02 Home Medications: Home Medications Oxacillin(*) 1 dose IV SEE INSTRUCTIONS 09/28/18 [History Confirmed 09/28/18] PMH/Surg Hx/FS Hx/Imm Hx Previously Healthy: Yes Endocrine/Hematology History: Denies: Hx Diabetes, Other Endocrine/Hematological Disorders Cardiovascular History: Reports: Other Cardiovascular Problems/Disorders - palpitations Denies: Hx Hypertension, Hx Pacemaker/ICD Respiratory History: Denies: Other Respiratory Problems/Disorders GI History: Denies: Other GI Disorders History: Denies: Other Problems/Disorders Musculoskeletal History: Reports: Hx Fibromyalgia, Hx Osteoporosis Denies: Other Musculoskeletal History Sensory History: Reports: Hx Contacts or Glasses - GLASSES, Hx Vision Problem Denies: Hx Hearing Aid, Other Sensory Impairments Opthamlomology History: Reports: Hx Contacts or Glasses - GLASSES, Hx Vision Problem Denies: Other Sensory Impairments Neurological History: Reports: Hx Headaches, Hx Migraine Denies: Other Neuro Impairments/Disorders Psychiatric History: Reports: Hx Depression Denies: Hx Panic Disorder, Other Psychiatric Issues/Disorders - Cancer History Hx Chemotherapy: No Hx Radiation Therapy: No - Surgical History Surgery Procedure, Year, and Place: Bilat eye surg muscle correction ,total abdominal hysterectomy Hx Anesthesia Reactions: Yes - SEVERE NAUSEA; LOW BP AFTER HYSTERECTOMY Infectious Disease History: No Infectious Disease History: Denies: Traveled Outside the [place] in Last 30 Days - Family History Known Family History: Positive: Cardiac Disease, Hypertension Family History: negative anesthesia reaction - Social History Alcohol Use: None Hx Substance Use: No Substance Use Type: Reports: None Hx Tobacco Use: No Smoking Status (MU): Never Smoked Tobacco Review of Systems Positive: Other - wound vac is broken Positive: Anxious All Other Systems Reviewed And Are Negative: Yes Physical Exam - Summary Physical Exam Summary: Appearance: The patient is well-nourished in no acute distress and in no acute pain. Skin: The skin is warm and dry and skin color reflects adequate perfusion. HEENT: The head is normocephalic and atraumatic. The pupils are equal and reactive. The conjunctivae are clear and without drainage. Nares are patent and without drainage. Mouth reveals moist mucous membranes and the throat is without erythema and exudate. The external ears are intact. The ear canals are patent and without drainage. The tympanic membranes are intact. Neck: The neck is supple with full range of motion and non-tender. There are no carotid bruits. There is no neck vein distension. Respiratory: Chest is non-tender. Lungs are clear to auscultation and breath sounds are symmetrical and equal. Cardiovascular: Heart is regular rate and rhythm. There is no murmur or rub auscultated. There is no peripheral edema and pulses are symmetrical and equal. Abdomen: The abdomen is soft and non-tender. There are normal bowel sounds heard in all four quadrants and there is no organomegaly palpated. Musculoskeletal: There is no back tenderness noted. Extremities are non-tender with full range of motion. There is good capillary refill. There is no peripheral edema or calf tenderness elicited. Neurological: Patient is alert and oriented to person, place and time. The patient has symmetrical motor strength in all four extremities. Cranial nerves are grossly intact. Deep tendon reflexes are symmetrical and equal in all four extremities. Psychiatric: The patient has an appropriate affect and does not exhibit any anxiety or depression. Triage Information Reviewed: Yes Vital Signs On Initial Exam: Initial Vitals Temp Pulse Resp BP Pulse Ox 99.6 F 123 16 145/95 100 09/28/18 08:41 09/28/18 08:41 09/28/18 08:41 09/28/18 08:41 09/28/18 08:41 Vital Signs Reviewed: Yes Diagnostics - Vital Signs Vital Signs Temp Pulse Resp BP Pulse Ox 09/28/18 08:41 99.6 F 123 16 145/95 100 - Laboratory Lab Statement: Any lab studies that have been ordered have been reviewed, and results considered in the medical decision making process. Complex Multi-Symp Course/Dx Course Of Treatment: Her dressing was changed and she was satisfied that the pump is working appropriately afterwards. - Diagnoses Provider Diagnoses: Encounter for replacement of dressing of surgical wound Discharge - Sign-Out/Discharge Documenting (check all that apply): Patient Departure Patient Received Moderate/Deep Sedation with Procedure: No - Discharge Plan Condition: Stable Disposition: HOME Referrals: Al HDZ,Debbie Tererll [Primary Care Provider] - Additional Instructions: Please follow up with your primary care provider. Return to the emergency department with any new or worsening symptoms - Billing Disposition and Condition Condition: STABLE Disposition: Home - Attestation Statements Document Initiated by Rosa Mariaibe: Yes Documenting Scribe: Kareen Price Provider For Whom Carolyne is Documenting (Include Credential): Otf Lakhani MD. Scribe Attestation: Kareen Brito scribed for Otf Lakhani MD. on 09/28/18 at 1209. Scribe Documentation Reviewed: Yes Provider Attestation: The documentation as recorded by the scribeKareen accurately reflects the service I personally performed and the decisions made by , Otf Lakhani MD. Status of Scribe Document: Viewed
[2018-09-28 10:14] VITALS: BP 111/79
== END 2018-09-28 10:13 | disposition home or self-care (01) ==
LOC: ED 08:40
DX: Z48.01 Encounter for change or removal of surgical wound dressing (principal); F41.9 Anxiety disorder, unspecified; F32.9 Major depressive disorder, single episode, unspecified
CPT/HCPCS: 99282

== ENCOUNTER 2018-12-04 13:48 | Emergency (ER) | payer MEDICARE ==
[2018-12-04 14:08] VITALS: BP 104/87
--- OUTSIDE RECORDS SUMMARY | 2018-12-04 14:31 | XMS REPORT ---
:1955 Author Organization [facility] Address [address] [place] [address] Care Team Providers Name Role Phone Sarthak Leon Unavailable Unavailable PROBLEMS Type Condition ICD9-CM [id number] Onset Condition SNOMED Code Code Code Dates Status Problem Brain injury S06.9X9A Active 273608515 Problem Neck pain, chronic M54.2 Active 5611630647334 Problem Acute J00 Active 51421590 nasopharyngitis Problem Elevated blood R03.0 Active 724207660 pressure reading without diagnosis of hypertension Problem Depression with 300.4 Active 905751641 anxiety Problem Rash of back R21 Active 156339512 Problem Tinnitus of both H93.13 Active 3053956837277 ears Problem Dyslipidemia E78.5 Active 212341302 Problem Chronic fatigue R53.82 Active 66051628 Problem Dysthymic disorder F34.1 Active 80718627 Problem Abnormal mammogram R92.8 Active 694246376 of left breast ALLERGIES No Information ENCOUNTERS Encounter Location Date Diagnosis [address], [place] [address] [facility] [address] [place], [place] [address] Aug, [place] [address] [facility] [address] [place], [place] [address] [facility] [address] [facility] [place], Feb, [place] [address] Z12.11 [facility] [address] [place], [place], [place] [address] [facility] [address] [place], May, [place] [address] M25.541 and Rash R21 [place] [facility] [address] [facility] [place], [place] [address] [place], Dysthymic disorder F34.1 [place] [address] [facility] [address] [facility] [place], Dysthymic disorder F34.1 [place] [address] [facility] [address] [address] [facility] [place], [place] [address] [place] [facility] [address] [address] [place], Apr, [place] [address] [place] [facility] [address] [facility] [place], [place] [address] [facility] [address] [facility] [place], Apr, Rash, skin R21 ; [place] [address] mammogram of left breast R92.8 and Elevated blood pressure reading without diagnosis of hypertension R03.[address] Apr, [place] [address] [facility] [address] [facility] [place], [place] [address] [place], [place] [address] [place], [place] [address] [facility] [address] [facility] [place], [place] [address] [facility] [address] [facility] [place], Nov, [place] [address] at 5 o'clock position N63.[address] [place], [place] [address] [facility] [address] [facility] [place], [place] [address] [place] [facility] [address] [facility] [address] [place] [address] [place] [facility] [address] [facility] [place], Oct, Dysthym[place] F34.1 [place] [address] [place] [facility] [address] [facility] [place], Oct, Dysthymic disorder F34.1 ; [place] [address] Chronic fatigue R53.82 ; Colon cancer screening Z12.11 and Screening mammogram, encounter for Z12.31 [place] [facility] [address] [facility] [place], [place] [address] [place], [place] [address] [place], [place] [address] [place], [place] [address] [place], [place], [place] [address] Z01.818 ; Dyslipidemia E78.5 and Chronic fatigue R53.[address] [place], [place] [address] [place], [place] [address] [place], [place], [place] [address] maxillary sinusitis J01.[address] [place] [address] [place], [place] [address] [place], [place] [address] [place], Feb, Strep pharyngitis J02.0 ; [place] [address] Sleep disturbance G47.9 ; Screening for colon cancer Z12.11 and Screening for breast cancer Z12.[address] Dec, [place] [address] [place], Dec, [place]uria R30.0 [place] [address] [place], [place] [address] [place], [place] [address] [place], [place] [address] [place], [place], [place] [address] G44.309 ; Neck pain, chronic M54.2 and Brain injury S06.9X9A [address] [place], [place], Brain injury S06.9X9A ; [place] [address] Neck pain, chronic M54.2 ; Post-concussion headache G44.309 and Moderate episode of recurrent major depressive disorder F33.[address] [place] [address] [place], [place], Brain injury S06.9X9A ; [place] [address] Neck pain, chronic M54.2 and Post-concussion headache G44.309 [place] [facility] [address] [place] [address] [place], [place] [address] [place] [facility] [address] [place] [address] [place], [place] [address] [place] [address] [place], [place] [address] [place] [facility] [address] [place] [address] [place], [place] [address] [place], [place] [address] [place], [place] [address] [place], Dec, Brain injury S06.9X9A ; [place] [address] Neck pain, chronic M54.2 and Post-concussion headache G44.[address] [place] [address] [place], Dec, Dyslipidemia E78.5 ; [place] [address] Encounter for immunization Z23 and Acute nasopharyngitis J00 [place] [address] [place], Nov, Brain injury S06.9X9A ; [place] [address] Neck pain, chronic M54.2 and Post-concussion headache G44.309 [place] [address] [place], Sep, [place] [address] 339.20 ; Neck pain 723.1 ; Brain injury NEC, with concussion 854.09 and Right shoulder pain 719.[address] [place] [address] [place], [place] [address] 339.20 ; Neck pain 723.1 ; Brain injury NEC, with concussion 854.09 and Right shoulder pain 719.[address] [place] [address] [place], [place] [address] [place] [address] [place], [place], [place] [address] 339.20 ; Right shoulder pain 719.41 and Neck pain 723.[address] [place] [address] [place], [place] [address] [place] [address] [place], [place] [address] [place] [address] [place], [place] [address] 339.20 and Right shoulder pain 719.[address] [place] [address] [place], [place] [address] 339.[address] [place] [address] [place], [place], Acute [place]osin[place]itis 461.9 [place] [address] [place] [address] [place], [place], [place] [address] 339.20 and Depression with anxiety 300.[address] [place] [address] [place], [place], [place] [address] 339.[address] [place] [address] [place], Apr, [place] [address] 339.[address] [place] [address] [place], Apr, Abdominal pain 789.00 [place] [address] Left flank pain 789.[address] [place], Apr, Left [place] 789.09 [place] [address] [place] [address] [place], Apr, Brain injury NEC , [place] [address] concussion 854.09 and Post-concussion headache 339.[address] [place] [address] [place], Dec, Chronic sinusitis 473.9 [place] [address] [place], Nov, Acute sinusitis 461.9 [place] [address] Need for immunization against influenza V04.[address] [place], [place], [place] [address] 368.[address] [place] [address] [place], [place], [place] [address] 300.4 ; Depressive disorder NEC 311 ; Other screening mammogram V76.12 ; Other malaise and fatigue 780.79 and Screening for lipoid disorders V77.91 IMMUNIZATIONS No Known Immunizations SOCIAL HISTORY Never Assessed REASON FOR REFERRAL FUNCTIONAL STATUS PLAN OF CARE VITAL SIGNS MEDICATIONS Unknown Medications PROCEDURES No Known procedures RESULTS No Results REASON FOR VISIT [facility] Insurance Providers [facility] Member Patient Patient Patient Patient Patient Subscriber Subscriber Subscriber Group Insurance Plan Plan Plan Plan ID Relationship Address Phone Name Date of ID Name Date of No Type Insurance Insurance Insurance Coverage to Subscriber Address Phone Name Dates Case [phone] Case self [place] [id number] Management Leonard King 02 Management [place] [facility] [address] Community Medicaid [id number] [phone] Medicaid self [place] [id number] [facility] [address] [place] [id number] [employer] [phone] Excell[employer] self [place] [id number] Medicare [id number] Medicare [place] 5 Supplement [place] Supplement Plan [id number] Plan Medicare [place] [id number] Medicare self [place] [id number] PPS Government 41 PPS [place] Services [address] [place] [id number] [employer] [phone] Excell[employer] self [place] [id number] Essential [id number] Essential [place] 4 Plan 1 2 [place] Plan 1 2 Medical [address] Medical [place] [phone] [place] [id number] DOI Insurance [id number] Insurance [place] 2.24.1 Fund [facility] Fund [id number] [employer] [phone] [employer] self [place] [id number] Attn 83 [id number] [place] Dnt Hplx Claims Dnt Hplx [address] [facility] [address] Excell[employer] [phone] Excell[employer] self [place] [id number] Medicare [id number] Medicare [place] 5 Adv HMO [place] Adv [facility] [id number] MEDICAL (GENERAL) HISTORY Type Description Date Medical History depression Medical History fibromyalgia Medical History osteoporosis Medical History L knee with chipped bone Medical History Neck pain Medical History head injury Surgical History R eye surgeries- 2 surgery for inturning eye Surgical History total hysterectomy 1997 Surgical History neck- discetomy Hospitalization History overnight chest pain and anxiety
--- OUTSIDE RECORDS SUMMARY | 2018-12-04 14:31 | XMS REPORT ---
:1955 Author Organization Formerly [facility] Address [address] [place] [address] Care Team Providers Name Role Phone Sarthak Leon Unavailable Unavailable PROBLEMS Type Condition ICD9-CM [id number] Onset Condition SNOMED Code Code Code Dates Status Problem Brain injury S06.9X9A Active 464802968 Problem Neck pain, chronic M54.2 Active 4396679726814 Problem Acute J00 Active 62374809 nasopharyngitis Problem Elevated blood R03.0 Active 737237356 pressure reading without diagnosis of hypertension Problem Depression with 300.4 Active 659648072 anxiety Problem Rash of back R21 Active 671716561 Problem Tinnitus of both H93.13 Active 9379491482188 ears Problem Dyslipidemia E78.5 Active 581250371 Problem Chronic fatigue R53.82 Active 84556592 Problem Dysthymic disorder F34.1 Active 36979076 Problem Abnormal mammogram R92.8 Active 901490472 of left breast ALLERGIES No Information ENCOUNTERS Encounter Location Date Diagnosis [address] Sep, [place] [address] [facility]ly [facility] [address] [place] [place], [place] [address] Aug, [place] [address] [facility]ly [facility] [address] [place], [place] [address] [facility] [address] [place], Feb, [place] [address] Z12.11 [facility] [address] [place], [place], [place] [address] [facility] [address] [place], [place], [place] [address] M25.541 and Rash R21 [place] [facility] [address] [place], [place] [address] [place], Dysthymic disorder F34.1 [place] [address] [facility] [address] . [facility] May, Dysthymic disorder F34.1 [place] [address] [facility] [address] [place], [place] [address] [place] [facility] [address] [place], Apr, [place] [address] [place] [facility] [address] [place], [place] [address] [facility]ly [facility] [address] [place], Apr, Rash, skin R21 ; [place] [address] mammogram of left breast R92.8 and Elevated blood pressure reading without diagnosis of hypertension R03.[address] Apr, [place] [address] [facility] [address] [facility] [place], [place] [address], [place] [address] [place], [place] [address] [facility] [address] [place], [place] [address] [facility] [address] [address] [place], Nov, [place] [address] at 5 o'clock position N63.[address] Nov, [place] [address] [facility] [address] [address] [place], [place] [address] [place] [facility] [address] [place], [place] [address] [place] [facility] [address] [place], Oct, Dysthym[place] F34.1 [place] [address] [place] [facility] [address] [place], Oct, Dysthymic disorder F34.1 ; [place] [address] Chronic fatigue R53.82 ; Colon cancer screening Z12.11 and Screening mammogram, encounter for Z12.31 [place] [facility] [address] [address] [place], [place] [address] [place], [place] [address] [place], [place] [address] [place], [place] [address] [place], [place], [place] [address] Z01.818 ; Dyslipidemia E78.5 and Chronic fatigue R53.[address] [place], [place] [address] [place], [place] [address] [place], [place], [place] [address] maxillary sinusitis J01.[address] [place] [address] [place], [place] [address] [place], [place] [address] [place], Feb, Strep pharyngitis J02.0 ; [place] [address] Sleep disturbance G47.9 ; Screening for colon cancer Z12.11 and Screening for breast cancer Z12.[address] Dec, [place] [address] [place], Dec, [place] R30[place]0 [place] [address] [place], [place] [address] [place], [place] [address] [place], [place] [address] [place], [place], [place] [address] G44.309 ; Neck pain, chronic M54.2 and Brain injury S06.9X9A [address] [place], June, Brain injury S06.9X9A ; [place] [address] Neck pain, chronic M54.2 ; Post-concussion headache G44.309 and Moderate episode of recurrent major depressive disorder F33.[address] [place] [address] [place], Jan, Brain injury S06.9X9A ; [place] [address] Neck pain, chronic M54.2 and Post-concussion headache G44.309 [place] [facility] [address] [place] [address] [place], [place] [address] [place] [facility] [address] [place] [address] [place], [place] [address] [place] [address] [place], [place], [place] [address] [place] [facility] [address] [place] [address] [place], [place] [address] [place], [place] [address] Dec, [place] [address] [place], Dec, Brain injury S06.9X9A ; [place] [address] Neck pain, chronic M54.2 and Post-concussion headache G44.[address] [place] [address] [place], Dec, Dyslipidemia E78.5 ; [place] [address] Encounter for immunization Z23 and Acute nasopharyngitis J00 [place] [address] [place], Nov, Brain injury S06.9X9A ; [place] [address] Neck pain, chronic M54.2 and Post-concussion headache G44.[address] [place] [address] [place], Sep, [place] [address] 339.20 ; Neck pain 723.1 ; Brain injury NEC, with concussion 854.09 and Right shoulder pain 719.[address] [place] [address] [place], [place], [place] [address] 339.20 ; Neck pain 723.1 ; Brain injury NEC, with concussion 854.09 and Right shoulder pain 719.[address] [place] [address] [place], [place] [address] [place] [address] [place], [place], [place] [address] 339.20 ; Right shoulder pain 719.41 and Neck pain 723.[address] [place] [address] [place], [place] [address] [place] [address] [place], [place] [address] [place] [address] [place], [place], [place] [address] 339.20 and Right shoulder pain 719.[address] [place] [address] [place], [place], [place] [address] 339.[address] [place] [address] [place], June, Acute rhinosinusitis 461.9 [place] [address] [place] [address] [place], [place], [place] [address] 339.20 and Depression with anxiety 300.[address] [place] [address] [place], [place], [place] [address] 339.[address] [place] [address] [place], Apr, [place] [address] 339.[address] [place] [address] [place], Apr, Abdominal pain 789.00 [place] [address] Left flank pain 789.[address] [place], Apr, Left [place] 789.09 [place] [address] [place] [address] [place], Apr, Brain injury NEC [place] [address] concussion 854.09 and Post-concussion headache 339.[address] [place] [address] [place], Dec, Chronic sinusitis 473.9 [place] [address] [place] [address] [place], Nov, Acute sinusitis 461.9 [place] [address] Need for immunization against influenza V04.[address] [place] [address] [place], [place], [place] [address] 368.[address] [place] [address] [place], Apr, [place] [address] 300.4 ; Depressive disorder NEC 311 ; Other screening mammogram V76.12 ; Other malaise and fatigue 780.79 and Screening for lipoid disorders V77.91 IMMUNIZATIONS No Known Immunizations SOCIAL HISTORY Never Assessed REASON FOR REFERRAL FUNCTIONAL STATUS PLAN OF CARE VITAL SIGNS MEDICATIONS Unknown Medications PROCEDURES No Known procedures RESULTS No Results REASON FOR VISIT RHIO Alert [facility] ED Insurance Providers [facility] Member Patient Patient Patient Patient Patient Subscriber Subscriber Subscriber Group Insurance Plan Plan Plan Plan ID Relationship Address Phone Name Date of ID Name Date of No Type Insurance Insurance Insurance Coverage to Subscriber Address Phone Name Dates Medicaid [address] [phone] Medicaid self [place] [id number] [facility] [address] [place] [id number] Medicare National [id number] Medicare self [place] [id number] PPS Government 41 PPS [place] [address] [place] [id number] [employer] [phone] Excell[employer] self [place] [id number] Essential [id number] Essential [place] 4 Plan 1 2 [place] Plan 1 2 Medical [id number] Medical [employer] [phone] Excell[employer] self [place] [id number] Attn 83 [id number] [place] Dnt Hplx Claims Dnt Hplx EsPl [address] Dept EsPl 12 [facility] [address] Excellus [phone] Excell[employer] self [place] [id number] Medicare [id number] Medicare [place] 5 Adv BC H[place] Adv HMO [id number] [employer] [phone] [employer] self [place] [id number] Medicare [id number] Medicare [place] 5 Supplement [place] [id number] Plan [place] [phone] [place] [id number] DOI Insurance [id number] Insurance [place] 2.24.1 [facility] 5 [address] Case [phone] Case self [place] [id number] Management [place] 02 Management [place] [facility] [address] [facility] MEDICAL (GENERAL) HISTORY Type Description Date Medical History depression Medical History fibromyalgia Medical History osteoporosis Medical History L knee with chipped bone Medical History Neck pain Medical History head injury Surgical History R eye surgeries- 2 surgery for inturning eye Surgical History total hysterectomy 1997 Surgical History neck- discetomy Hospitalization History overnight chest pain and anxiety
== END 2018-12-04 16:14 | disposition home or self-care (01) ==
LOC: ED 13:48
DX: N23 Unspecified renal colic (principal); Z53.21 Procedure and treatment not carried out due to patient leaving prior to being seen by health care provider
CPT/HCPCS: 99282